=== PATIENT | male | born 1975 | race Caucasian/White ===

== ENCOUNTER 2021-04-08 20:31 | Observation (INO) | payer BC ==
[2021-04-08] MEDS ORDERED: SODIUM CHLORIDE 0.9% 1,000 ML IV STA (21:49)
[2021-04-08] MEDS ORDERED: KETOROLAC 15 MG/ML 1 ML VIAL IVP STA (21:49)
[2021-04-08] MEDS ORDERED: MORPHINE SULFATE 4 MG/ML SYRINGE IV STA (21:49)
--- NOTE | 2021-04-08 21:51 | ED ---
Abdominal Pain HPI - General Chief Complaint: Abdominal Pain Stated Complaint: Abd Pain Time Seen by Provider: 04/08/21 21:29 Source: patient, RN notes reviewed, old records reviewed Mode of arrival: ambulatory Limitations: no limitations - History of Present Illness Initial Comments: This is a 46-year-old male to the emergency department today. Patient presents today for evaluation regards to abdominal pain. Patient was seen in urgent care and sent DF for further evaluation regarding possibility of appendicitis. A she has no significant medical history no significant surgical history MD Complaint: abdominal pain -: hour(s) Location: diffuse, RLQ Radiation: RLQ Migration to: suprapubic Severity: moderate Severity scale (1-10): 4 Quality: cramping, aching Consistency: constant, intermittent Worsens With: nothing Associated Symptoms: nausea Treatments Prior to Arrival: other (none) - Related Data Home Medications Medication Instructions Recorded Confirmed Multivitamins, Thera [Theragran] 1 tab PO DAILY 03/31/15 04/08/21 Acetaminophen [Tylenol Extra 1,000 mg PO Q6H PRN 04/08/21 04/08/21 Strength] Cyanocobalamin (Vitamin B-12) 1,000 mcg PO DAILY 04/08/21 04/08/21 [Vitamin B-12] Elderberry Fruit and Flower [Black 1 cap PO DAILY 04/08/21 04/08/21 Elderberry 575 mg Cap] Losartan [Cozaar] 50 mg PO DAILY 04/08/21 04/08/21 [place]-3 Fatty Acids/Fish Oil [Fish 1 cap PO DAILY 04/08/21 04/08/21 Oil 1,000 mg Softgel] Turmeric Root Extract [Turmeric] 500 mg PO DAILY 04/08/21 04/08/21 Zinc Gluconate [Zinc] 50 mg PO DAILY 04/08/21 04/08/21 Allergies Allergy/AdvReac Type Severity Reaction Status Date / Time No Known Allergies Allergy Verified 04/08/21 22:55 Review of Systems ROS Statement: Those systems with pertinent positive or pertinent negative responses have been documented in the HPI. ROS Other: All systems not noted in ROS Statement are negative. Past Medical History Additional Past Medical History / Comment(s): steroids w/in 3 mos, lt shoulder pain,freq muscle spasms to neck,numbness lt index finger and thumb History of Any Multi-Drug Resistant Organisms: None Reported Past Surgical History: Orthopedic Surgery Additional Past Surgical History / Comment(s): rt rot cuff repair,nasal surgery Past Anesthesia/Blood Transfusion Reactions: No Reported Reaction Past Psychological History: No Psychological Hx Reported Smoking Status: Former smoker Past Alcohol Use History: Occasional Past Drug Use History: None Reported - Past Family History Mother Additional Family Medical History / Comment(s): heart problems Father Family Medical History: Diabetes Mellitus, Hypertension General Exam Limitations: no limitations General appearance: alert, in no apparent distress Head exam: Present: atraumatic, normocephalic, normal inspection Eye exam: Present: normal appearance, PERRL, EOMI. Absent: scleral icterus, conjunctival injection, periorbital swelling ENT exam: Present: normal exam, mucous membranes moist Neck exam: Present: normal inspection. Absent: tenderness, meningismus, lymphadenopathy Respiratory exam: Present: normal lung sounds bilaterally. Absent: respiratory distress, wheezes, rales, rhonchi, stridor Cardiovascular Exam: Present: regular rate, normal rhythm, normal heart sounds. Absent: systolic murmur, diastolic murmur, rubs, gallop, clicks GI/Abdominal exam: Present: soft, normal bowel sounds. Absent: distended, tenderness, guarding, rebound, rigid Extremities exam: Present: normal inspection, full ROM, normal capillary refill. Absent: tenderness, pedal edema, joint swelling, calf tenderness Back exam: Present: normal inspection Neurological exam: Present: alert, oriented X3, CN II-XII intact Psychiatric exam: Present: normal affect, normal mood Skin exam: Present: warm, dry, intact, normal color. Absent: rash Course Vital Signs 04/08/21 04/08/21 20:51 22:41 Temperature 98.6 F Pulse Rate 96 79 Respiratory 19 20 Rate Blood Pressure 146/101 136/87 O2 Sat by Pulse 98 96 Oximetry - Reevaluation(s) Reevaluation #1: 04/08/21 22:46 Medical records reviewed Reevaluation #2: 04/09/21 00:30 Patient informed of results and questions answered Reevaluation #3: 04/09/21 00:30 Patient's pain is controlled Medical Decision Making - Medical Decision Making 46 male DF for evaluation of abdominal pain with acute appendicitis. No rupture. Patient placed on antibiotics pain control and nothing per mouth status for surgery in the morning - Lab Data Result diagrams: 04/08/21 21:49 04/08/21 21:49 Lab Results 04/08/21 04/08/21 Range/Units 21:49 21:49 WBC 13.6 H (3.8-10.6) k/uL RBC 4.75 (4.30-5.90) m/uL Hgb 14.1 (13.0-17.5) gm/dL Hct 41.9 (39.0-53.0) % MCV 88.2 (80.0-100.0) fL MCH 29.7 (25.0-35.0) pg MCHC 33.7 (31.0-37.0) g/dL RDW 12.2 (11.5-15.5) % Plt Count 204 (150-450) k/uL MPV 8.2 Neutrophils % 83 % Lymphocytes % 10 % Monocytes % 5 % Eosinophils % 1 % Basophils % 0 % Neutrophils # 11.3 H (1.3-7.7) k/uL Lymphocytes # 1.3 (1.0-4.8) k/uL Monocytes # 0.7 (0-1.0) k/uL Eosinophils # 0.1 (0-0.7) k/uL Basophils # 0.0 (0-0.2) k/uL Sodium 138 (137-145) mmol/L Potassium 4.1 (3.5-5.1) mmol/L Chloride 105 (98-107) mmol/L Carbon Dioxide 21 L (22-30) mmol/L Anion Gap 12 mmol/L BUN 20 (9-20) mg/dL Creatinine 0.89 (0.66-1.25) mg/dL Est GFR (CKD-EPI)AfAm >90 (>60 ml/min/1.73 sqM) Est GFR (CKD-EPI)NonAf >90 (>60 ml/min/1.73 sqM) Glucose 128 H (74-99) mg/dL Calcium 9.7 (8.4-10.2) mg/dL Phosphorus 3.6 (2.5-4.5) mg/dL Magnesium 2.0 (1.6-2.3) mg/dL Total Bilirubin 0.4 (0.2-1.3) mg/dL AST 42 (17-59) U/L ALT 40 (4-49) U/L Alkaline Phosphatase 105 (38-126) U/L Total Protein 7.2 (6.3-8.2) g/dL Albumin 4.3 (3.5-5.0) g/dL Amylase 73 (30-110) U/L Lipase 187 (23-300) U/L - Radiology Data Radiology results: report reviewed (CT of the abdomen and pelvis is positive for acute appendicitis), image reviewed Disposition Clinical Impression: Abdominal pain, Acute appendicitis Disposition: ADMITTED IP TO THIS [facility] Condition: Good Is patient prescribed a controlled substance at d/c from ED?: No Referrals: Addison Parker DO [Primary Care Provider] - 1-2 days
[2021-04-08 22:43] LABS: Basophils % (A) 0 %; Eosinophils # (A) 0.1 k/uL (0-0.7); Eosinophils % (A) 1 %; HCT 41.9 % (39.0-53.0); HGB 14.1 gm/dL (13.0-17.5); Lymphocytes # (A) 1.3 k/uL (1.0-4.8); Lymphocytes % (A) 10 %; MCH 29.7 pg (25.0-35.0); MCHC 33.7 g/dL (31.0-37.0); MCV 88.2 fL (80.0-100.0); Mean Platelet Volume 8.2; Monocytes # (A) 0.7 k/uL (0-1.0); Monocytes % (A) 5 %; Neutrophils # (A) 11.3 k/uL (1.3-7.7); Neutrophils % (A) 83 %; Platelet Count 204 k/uL (150-450); RBC 4.75 m/uL (4.30-5.90); RDW 12.2 % (11.5-15.5); WBC 13.6 k/uL (3.8-10.6)
[2021-04-08 22:53] LABS: ALT 40 U/L (4-49); AST 42 U/L (17-59); African American GFR (CKD) >90 (>60 ml/min/1.73 sqM); Albumin 4.3 g/dL (3.5-5.0); Alkaline Phosphatase 105 U/L (38-126); Amylase 73 U/L (30-110); Anion Gap 12 mmol/L; Blood Urea Nitrogen 20 mg/dL (9-20); Calcium 9.7 mg/dL (8.4-10.2); Carbon Dioxide 21 mmol/L (22-30); Chloride 105 mmol/L (98-107); Glucose 128 mg/dL (74-99); Lipase 187 U/L (23-300); Non-African American GFR(CKD) >90 (>60 ml/min/1.73 sqM); Potassium 4.1 mmol/L (3.5-5.1); Sodium 138 mmol/L (137-145); Total Bilirubin 0.4 mg/dL (0.2-1.3); Total Protein 7.2 g/dL (6.3-8.2)
[2021-04-08 22:55] LABS: Phosphorus 3.6 mg/dL (2.5-4.5)
--- NOTE | 2021-04-08 23:24 | CT ---
EXAMINATION TYPE: CT abdomen pelvis w con DATE OF EXAM: 04/08/2021 COMPARISON: None HISTORY: RLQ pain CT DLP: 1397.6 mGycm Automated exposure control for dose reduction was used. CONTRAST: Performed with IV Contrast, patient injected with 100 mL of Isovue 300. Lung bases are clear. There is no pleural effusion. Heart size is normal. There is no pericardial eff usion. Stomach is intact. Liver spleen pancreas gallbladder appear intact. Bile ducts are not dilated . There is no adrenal mass. Kidneys show satisfactory contrast opacification. There is no hydronephrosi s. There is 3 cm cortical cyst posterior left kidney. There is no retroperitoneal adenopathy. Bladder distends smoothly. There is no inguinal hernia. There is no free fluid in the pelvis. Delayed images show normal renal excretion. There is significant enlargement of the appendix. Appendix is dilated with fluid up to 1.7 cm. There is mild fat stranding around the appendix. There is no free air. There is no ascites. There is no sign of a bowel obstruction. The lumbar vertebra have normal alignment. Posterior elements are intact. There is no compression fra cture. IMPRESSION: Dilated fluid-filled appendix with inflammatory changes and acute appendicitis.
[2021-04-09] MEDS ORDERED: AMPICILLIN-SULBACTAM 3 GM in SODIUM CHLORIDE 0.9% 100 ML IVPB STA (00:06)
[2021-04-09] MEDS ORDERED: NALOXONE 0.4 MG/ML 1 ML VIAL IV PRN (00:29)
[2021-04-09] MEDS ORDERED: ONDANSETRON 4 MG/2 ML VIAL IVP PRN (00:29)
[2021-04-09] MEDS: SODIUM CHLORIDE 0.9% 1,000 ML IV SCH ×3 (01:05→16:18)
[2021-04-09] MEDS: MORPHINE SULFATE 4 MG/ML SYRINGE IV PRN ×5 (01:08→17:13)
[2021-04-09] MEDS: AMPICILLIN-SULBACTAM 3 GM in SODIUM CHLORIDE 0.9% 100 ML IVPB SCH ×2 (08:15→16:19)
[2021-04-09] MEDS ORDERED: PANTOPRAZOLE 40 MG/10 ML VIAL IV SCH (09:00)
[2021-04-09] MEDS ORDERED: HEPARIN SODIUM,PORCINE/PF 5,000 UNIT/0.5 ML SYRINGE SQ ONE (10:01)
[2021-04-09] MEDS ORDERED: SODIUM CHLORIDE 0.9% 1,000 ML IV ONE (10:08)
[2021-04-09] MEDS ORDERED: MIDAZOLAM 2 MG/2 ML VIAL ONE (10:20)
[2021-04-09] MEDS ORDERED: fentaNYL (PF) 50 MCG/ML 2 ML AMP ONE (10:20)
[2021-04-09] MEDS ORDERED: PROPOFOL 10 MG/ML 20 ML VIAL IV ONE (10:20)
[2021-04-09] MEDS ORDERED: LIDOCAINE 1% INJ 10MG/ML (20 ML MDV) ONE (10:20)
[2021-04-09] MEDS ORDERED: SUCCINYLCHOLINE CHLORIDE 100 MG/5 ML SYR IV ONE (10:20)
[2021-04-09] MEDS ORDERED: NEOSTIGMINE 1 MG/ML 10 ML VIAL ONE (10:20)
[2021-04-09] MEDS ORDERED: ROCURONIUM 10 MG/ML (5 ML VIAL) IV ONE (10:20)
[2021-04-09] MEDS ORDERED: GLYCOPYRROLATE 0.2 MG/ML 2 ML VIAL ONE (10:20)
--- NOTE | 2021-04-09 10:22 | P.GSHP ---
History of Present Illness H&P Date: 04/09/21 Chief Complaint: Acute appendicitis 46-year-old male came to the ER last night with complaints of diffuse abdominal pain. Since that time patient's pain has migrated to the right lower quadrant. He had an episode similar to this many years ago that resolved spontaneously. That was supposedly related to excess creatine he had been taking. He is nauseated. No vomiting. Had some diarrhea yesterday. White blood cell count 13. No fevers. CAT scan shows acute appendicitis. - Review of Systems Comment: The patient denies any acute changes in vision or hearing, no dysphagia or odynophagia, no chest pain or shortness of breath, no dysuria or hematuria, no headache, no runny nose, no rectal bleeding or melena, no unexplained weight loss Past Medical History Past Medical History: Hypertension Additional Past Medical History / Comment(s): sciatica on the left side. Had covid in june. History of Any Multi-Drug Resistant Organisms: None Reported Past Surgical History: Orthopedic Surgery Additional Past Surgical History / Comment(s): rt and left rotator cuff repair, nasal surgery Past Anesthesia/Blood Transfusion Reactions: No Reported Reaction Past Psychological History: No Psychological Hx Reported Smoking Status: Never smoker Past Alcohol Use History: Occasional Additional Past Alcohol Use History / Comment(s): Pt states he drinks 24 drinks approximately only on the weekends. Past Drug Use History: Marijuana - Past Family History Mother Additional Family Medical History / Comment(s): heart problems Father Family Medical History: Diabetes Mellitus, Hypertension Medications and Allergies Home Medications Medication Instructions Recorded Confirmed Type Multivitamins, Thera [Theragran] 1 tab PO DAILY 03/31/15 04/08/21 History Acetaminophen [Tylenol Extra 1,000 mg PO Q6H PRN 04/08/21 04/08/21 History Strength] Cyanocobalamin (Vitamin B-12) 1,000 mcg PO DAILY 04/08/21 04/08/21 History [Vitamin B-12] Elderberry Fruit and Flower [Black 1 cap PO DAILY 04/08/21 04/08/21 History Elderberry 575 mg Cap] Losartan [Cozaar] 50 mg PO DAILY 04/08/21 04/08/21 History [place]-3 Fatty Acids/Fish Oil [Fish 1 cap PO DAILY 04/08/21 04/08/21 History Oil 1,000 mg Softgel] Turmeric Root Extract [Turmeric] 500 mg PO DAILY 04/08/21 04/08/21 History Zinc Gluconate [Zinc] 50 mg PO DAILY 04/08/21 04/08/21 History Allergies Allergy/AdvReac Type Severity Reaction Status Date / Time No Known Allergies Allergy Verified 04/08/21 22:55 Surgical - Exam Vital Signs Temp Pulse Resp BP Pulse Ox 98.6 F 96 19 146/101 98 04/08/21 20:51 04/08/21 20:51 04/08/21 20:51 04/08/21 20:51 04/08/21 20:51 Physical exam: General: Well-developed, well-nourished HEENT: Normocephalic, sclerae nonicteric Abdomen: Moderate right lower quadrant tenderness, nondistended Extremities: No edema Neuro: Alert and oriented Results - Labs 04/08/21 21:49 04/08/21 21:49 Abnormal Lab Results - Last 24 Hours (Table) 04/08/21 04/08/21 Range/Units 21:49 21:49 WBC 13.6 H (3.8-10.6) k/uL Neutrophils # 11.3 H (1.3-7.7) k/uL Carbon Dioxide 21 L (22-30) mmol/L Glucose 128 H (74-99) mg/dL Diabetes panel 04/08/21 Range/Units 21:49 Sodium 138 (137-145) mmol/L Potassium 4.1 (3.5-5.1) mmol/L Chloride 105 (98-107) mmol/L Carbon Dioxide 21 L (22-30) mmol/L BUN 20 (9-20) mg/dL Creatinine 0.89 (0.66-1.25) mg/dL Glucose 128 H (74-99) mg/dL Calcium 9.7 (8.4-10.2) mg/dL AST 42 (17-59) U/L ALT 40 (4-49) U/L Alkaline Phosphatase 105 (38-126) U/L Total Protein 7.2 (6.3-8.2) g/dL Albumin 4.3 (3.5-5.0) g/dL Calcium panel 04/08/21 Range/Units 21:49 Calcium 9.7 (8.4-10.2) mg/dL Phosphorus 3.6 (2.5-4.5) mg/dL Albumin 4.3 (3.5-5.0) g/dL Pituitary panel 04/08/21 Range/Units 21:49 Sodium 138 (137-145) mmol/L Potassium 4.1 (3.5-5.1) mmol/L Chloride 105 (98-107) mmol/L Carbon Dioxide 21 L (22-30) mmol/L BUN 20 (9-20) mg/dL Creatinine 0.89 (0.66-1.25) mg/dL Glucose 128 H (74-99) mg/dL Calcium 9.7 (8.4-10.2) mg/dL Adrenal panel 04/08/21 Range/Units 21:49 Sodium 138 (137-145) mmol/L Potassium 4.1 (3.5-5.1) mmol/L Chloride 105 (98-107) mmol/L Carbon Dioxide 21 L (22-30) mmol/L BUN 20 (9-20) mg/dL Creatinine 0.89 (0.66-1.25) mg/dL Glucose 128 H (74-99) mg/dL Calcium 9.7 (8.4-10.2) mg/dL Total Bilirubin 0.4 (0.2-1.3) mg/dL AST 42 (17-59) U/L ALT 40 (4-49) U/L Alkaline Phosphatase 105 (38-126) U/L Total Protein 7.2 (6.3-8.2) g/dL Albumin 4.3 (3.5-5.0) g/dL Assessment and Plan (1) Acute appendicitis Narrative/Plan: 46-year-old male with acute appendicitis. Clinical scenario reviewed in detail with the patient and his family. We'll proceed with laparoscopic, possible open appendectomy at this time. Risks of bleeding, infection, abscess, bladder bowel and ureteral injury, hernia, conversion to an open procedure. Patient understands and wishes to proceed. Current Visit: Yes Status: Acute Code(s): K35.80 - UNSPECIFIED ACUTE APPENDICITIS SNOMED Code(s): 46208697
[2021-04-09] MEDS ORDERED: ONDANSETRON 4 MG/2 ML VIAL IVP ONE (10:23)
[2021-04-09] MEDS ORDERED: DEXAMETHASONE SOD PHOSPHATE 4 MG/ML 1 ML VIAL IVP ONE (10:24)
[2021-04-09] MEDS ORDERED: BUPIVACAINE (PF) 0.25% 30 ML VIAL SQ ONE (10:46)
[2021-04-09] MEDS ORDERED: HYDROmorphone 0.5 MG/0.5 ML SYRINGE IVP PRN (11:26)
[2021-04-09] MEDS ORDERED: HYDROcodone/APAP 5-325MG 1 EACH TAB PO PRN (11:26)
[2021-04-09] MEDS ORDERED: diphenhydrAMINE 50 MG/ML 1 ML VIAL ONE (11:26)
[2021-04-09] MEDS ORDERED: diphenhydrAMINE 50 MG/ML 1 ML VIAL IVP ONE (11:28)
--- NOTE | 2021-04-09 11:33 | P.OP ---
Date of Procedure: 04/09/21 Procedure(s) Performed: PREOPERATIVE DIAGNOSIS: Acute appendicitis POSTOPERATIVE DIAGNOSIS: Same PROCEDURE: Laparoscopic appendectomy SURGEON: Mark EBL: 5 mL ANESTHESIA: General COMPLICATIONS: None OPERATIVE PROCEDURE: The patient was brought and placed on the operating table in the supine position. The patient was placed under general anesthesia. The abdomen was prepped and draped in the usual sterile fashion. A small vertical infraumbilical incision was made. The fascia was retracted anteriorly with Dalton forceps. The Veress needle was advanced into the peritoneal cavity. The saline drop test was normal. Insufflation took place to 15 mmHg. A 5 mm trocar was then placed. An additional 5 mm suprapubic trocar was placed under direct visualization as well as a 12 mm left lower quadrant trocar under direct visualization. The appendix was inspected. It was acutely inflamed. The mesoappendix was dissected. The base of the appendix was divided using a linear 45 mm intestinal stapler. The mesentery itself was divided using the LigaSure device. The area was then irrigated. No further purulence or bleeding was seen. The appendix was brought out of the peritoneal cavity through the left lower quadrant trocar site with an Endo Catch bag. The fascia at the 12 mm site was closed using a Leno-Carmen 0 Vicryl stitch. The skin at all 3 sites was closed using 4-0 Monocryl sutures. Skin glue was then applied. DISPOSITION: Stable to recovery room
[2021-04-09] MEDS: HYDROmorphone 0.5 MG/0.5 ML SYRINGE IVP ONE ×2 (11:39→11:52)
[2021-04-09 14:26] VITALS: BP 95/62; PULSE 56; RESP 17; TEMP 98.1
[2021-04-09] MEDS ORDERED: HEPARIN SODIUM,PORCINE/PF 5,000 UNIT/0.5 ML SYRINGE SQ SCH (16:00)
== END 2021-04-09 18:50 | disposition home or self-care (01) ==
LOC: EC 20:31 → 6NMEDSUR 04-09 00:29
PROVIDERS: ADMIT Surgery; ATTEND Surgery
DX: K35.80 Unspecified acute appendicitis (principal); I10 Essential (primary) hypertension; M54.32 Sciatica, left side; Z86.16 Personal history of COVID-19; Z79.899 Other long term (current) drug therapy; Z98.890 Other specified postprocedural states; Z87.891 Personal history of nicotine dependence; Z82.49 Family history of ischemic heart disease and other diseases of the circulatory system; Z83.3 Family history of diabetes mellitus
CPT/HCPCS: 96376 ×2; 96375 ×2; 96361; 96374; 99285; 36415; 88304; 80053; 82150; 83690; 83735; 84100; 85025; 87635; 74177; 44970; G0378; J2250; J2270 ×2; J1200; J1100; J2710; J2405; J2001; J3010; J0295; J1885; J0330; J2704; C9113; J1170; Q9967; J1644

== ENCOUNTER → 2021-07-15 | Outpatient (CLI) | payer BC ==
[2021-07-15 09:55] LABS: Basophils # (A) 0.1 k/uL (0-0.2); Basophils % (A) 1 %; Eosinophils # (A) 0.2 k/uL (0-0.7); Eosinophils % (A) 3 %; HGB 13.3 gm/dL (13.0-17.5); Lymphocytes # (A) 1.7 k/uL (1.0-4.8); Lymphocytes % (A) 28 %; MCH 29.3 pg (25.0-35.0); MCHC 32.5 g/dL (31.0-37.0); MCV 90.1 fL (80.0-100.0); Mean Platelet Volume 7.8; Monocytes # (A) 0.4 k/uL (0-1.0); Monocytes % (A) 7 %; Neutrophils # (A) 3.6 k/uL (1.3-7.7); Neutrophils % (A) 60 %; Platelet Count 208 k/uL (150-450); RBC 4.55 m/uL (4.30-5.90); WBC 6.1 k/uL (3.8-10.6)
[2021-07-15 10:03] LABS: Potassium 4.6 mmol/L (3.5-5.1)
== END | disposition home or self-care (01) ==
LOC: LABPAT 09:27
PROVIDERS: ATTEND Orthopaedic Surgery
DX: Z01.812 Encounter for preprocedural laboratory examination (principal)
CPT/HCPCS: 36415; 80051; 85025

== ENCOUNTER → 2022-01-14 | Outpatient (CLI) | payer BC ==
--- NOTE | 2022-01-14 07:51 | MR ---
EXAMINATION TYPE: MR shoulder RT wo con DATE OF EXAM: 01/14/2022 COMPARISON: Outside right shoulder x-ray 3 days ago HISTORY: Rt shoulder pain, hx of surgery TECHNIQUE: Multiplanar, multisequence imaging of the right shoulder is performed without contrast. FINDINGS: Exam suboptimal as there is significant patient motion Rotator Cuff: Increased signal in the distal supraspinatus and infraspinatus tendons with slight tear ing of the articular surface anteriorly. No significant full-thickness retracted tear. Intact suprasp inatus tendon. Rotator cuff muscle bulk preserved. Acromioclavicular Joint: Widening at the acromioclavicular joint may be products of prior surgery Glenohumeral Joint: Moderate narrowing with small joint effusion. Labrum: The labrum appears grossly intact given limitation of non-arthrogram study. Biceps Tendon: The long head of biceps is in normal location within bicipital groove. Bone marrow signal: Artifact is increased signal superior lateral humeral head likely reflects produc t of prior rotator cuff surgery. Other: Increased fluid signal subdeltoid/subacromial bursa. IMPRESSION: Suboptimal study. Tendinosis through the supraspinatus and infraspinatus tendons with slight tearing at site of surgical repair. No recurrent full-thickness retracted tear.
== END | disposition home or self-care (01) ==
LOC: RADMRIMAIN 06:51
PROVIDERS: ATTEND Orthopaedic Surgery
DX: M75.111 Incomplete rotator cuff tear or rupture of right shoulder, not specified as traumatic (principal)

== ENCOUNTER → 2022-07-04 | Outpatient (CLI) | payer BC ==
--- NOTE | 2022-07-04 11:47 | MR ---
EXAMINATION TYPE: MR shoulder LT wo con DATE OF EXAM: 07/04/2022 COMPARISON: X-ray 05/31/2022 HISTORY: L shoulder pain TECHNIQUE: Multiplanar, multisequence imaging of the left shoulder is performed without contrast. FINDINGS: There is marked heterogeneity of the distal margin of the infraspinatus and supraspinatus t endons which could be postsurgical or represent scattered intrasubstance microtears. No through thick ness tear or retraction. There does appear to be a abnormal marrow signal within the humeral head sug gestive of previous rotator cuff repair surgery. There is a pair labral cyst along the superior labrum with abnormal signal extending posteriorly comp atible with a SLAP tear. Inferior labrum intact. There is glenohumeral ligaments are intact. Tiny benign cystic changes involving the humeral head. Th ere is no evidence of acute fracture or dislocation. No definite impingement related to the AC joint. There is narrowing of the joint space with increased signal within the AC joint ligament. Bicipital tendon well situated within the bicipital groove IMPRESSION: 1. Marked heterogeneity to the distal margins of the supraspinatus and infraspinatus tendons may be r elated to postsurgical change or scattered intrasubstance microtears. No true thickness tear or retra ction. 2. Para labral cyst involving the superior labrum with findings compatible with SLAP tear 3. AC joint arthropathy correlate for AC joint ligamentous sprain. 4. Findings suggest previous rotator cuff repair surgery.
== END | disposition home or self-care (01) ==
LOC: RADMRIMAIN 10:21
PROVIDERS: ATTEND Orthopaedic Surgery
DX: M75.112 Incomplete rotator cuff tear or rupture of left shoulder, not specified as traumatic (principal); M25.512 Pain in left shoulder

== ENCOUNTER → 2022-09-26 | Outpatient (CLI) | payer BC ==
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
== END | disposition home or self-care (01) ==
LOC: RADCTMAIN 08:48
PROVIDERS: ATTEND Orthopaedic Surgery
DX: M47.22 Other spondylosis with radiculopathy, cervical region (principal); M41.9 Scoliosis, unspecified
CPT/HCPCS: 72125

== ENCOUNTER → 2022-10-13 | Outpatient (CLI) | payer BC ==
[2022-10-13 08:17] VITALS: BP 153/102; PULSE 80; RESP 18
--- NOTE | 2022-10-13 14:41 | P.PAINPG ---
PQRS Measure Charge Sheet Comment: HISTORY OF PRESENT ILLNESS: 47 yr old as a referral from Dr Zambrano presents today w severe and chronic neck pain secondary to spinal stenosis, DDD, spondylosis and facet arthropathy without myelopathy for evaluation. Pt states pain level is provoked at 6 /10 in intensity, intermittent, localized in the lower cervical spine, sharp, stabbing in character w shooting pain towards the L shoulder and LUE. Pain is provoked by lifting. Pain is alleviated by PT 2 times weekly (since shoulder surgery in 2016) integrated w massage at home by his , medications (Tyl, Ibu), topical, heat, ice, repositioning and rest. PMH: Appendicitis, HTN PSH: R RCT Repair (2021), Laparoscopic Appendectomy (2020), Nasal Surgery SH: Never smoker, Occasional ETOH use, No illicit drug use FH: Mo- CAD. Fa- DM, HTN. All: NKDA Meds: See list REVIEW OF ORGAN SYSTEMS: CONSTITUTIONAL: No fevers or chills. No recent weight loss. NEUROLOGICAL: + numbness and tingling along the distal extremities. No seizure disorders or headaches. MUSCULOSKELETAL: + pain PSYCHIATRIC: Denies current depression or suicidal thoughts. Physical Examinations : Constitutional : Cooperative , not in acute distress . Neurologic : Cranial nerve II to XII intact. No focal n eurological deficits. Psychiatric : alert & oriented x 3. Matching mood & appropriate affect. Judgment & insight intact. Musculoskeletal : Cervical Spine Motor strength in the deltoid and biceps: Normal right side. Normal Left side Motor strength biceps and the wrist extensors: Normal right side . Normal left side Motor strength in the triceps muscle: Normal right side. Normal left side Deep tendon reflexes: Normal at the biceps. Normal at Brachioradialis. Normal at triceps Vertebral body tenderness to deep palpation over C6 Cervical facet loading test: positive bilaterally Spurling test: positive bilaterally Neck distraction test: positive bilaterally Mikie sign: positive bilaterally Lumbar spine Motor strength lower extremities ,thigh and legs 5/5 Right side , 5/5 Left side Deep tendon reflexes : Normal Knee Jerk. Normal Ankle Jerk Vertebral body tenderness over Lumbar facet Loading Test: positive Right / positive Left Range of motion of the lumbar spine Flexion 30 degrees, extension 10 degrees Straight Leg Raise test: Left/ Right positive at degree Jimenez test: positive right / positive left. Severe tenderness over the Sacroiliac joint on the Right / Left sides Gaenslen test: positive bilaterally Seated flexion test: positive bilaterally. Sacral spine : Severe tenderness over the Sacroiliac joint: right side / left side Range of motion: Flexion of the lumbar spine <60 degrees Range of motion: Extension of the lumbar spine <20 degrees Gaenslen's Test positive Celio's Test positive Jimenez test: positive right side / left side Thigh Thrust Test Sacral Thrust Test Imaging: MRI without contrast of the cervical spine from 09/08/22 reviewed Assessment/ Plan : Cervical spinal stenosis, cervical DDD Recommendation of interlaminar SEN C6-C7 #1. May need a series of injections for optimal pain relief. Risks, benefits of procedure discussed and patient v erbalized understanding. Admits to aspirin or anti- coagulant use or medical history of diabetes. Protocol for discontinuation/ continuation of medications laly procedure discussed. All questions answered. I have spent greater than 30 minutes on patient care today. Dr Howard was available by phone for the evaluation of this patient. The time was used to review the medical records including relevant urine studies and Prescription history (MAPs), review of the available imaging, evaluation and examination of the patient, coordination of care with the medical staff and if applicable referring physicians, as well as creation of the medical record PQRS Narrative: Smoking Status Never smoker Home Medications: Ambulatory Orders Multivitamins, Thera [Theragran] 1 tab PO DAILY 03/31/15 Acetaminophen [Tylenol Extra Strength] 1,000 mg PO Q6H PRN 04/08/21 Cyanocobalamin (Vitamin B-12) [Vitamin B-12] 1,000 mcg PO DAILY 04/08/21 Elderberry Fruit and Flower [Black Elderberry 575 mg Cap] 1 cap PO DAILY 04/08/21 Losartan [Cozaar] 50 mg PO DAILY 04/08/21 [place]-3 Fatty Acids/Fish Oil [Fish Oil 1,000 mg Softgel] 1 cap PO DAILY 04/08/21 Turmeric Root Extract [Turmeric] 500 mg PO DAILY 04/08/21 Zinc Gluconate [Zinc] 50 mg PO DAILY 04/08/21 Controlled Substance Measures - Controlled Substance Measures Is patient prescribed a controlled substance at discharge?: No
== END ==
LOC: PNWHC3 07:40
PROVIDERS: ATTEND Specialist
DX: M50.30 Other cervical disc degeneration, unspecified cervical region (principal); M48.02 Spinal stenosis, cervical region; I10 Essential (primary) hypertension; K37 Unspecified appendicitis
CPT/HCPCS: 99211

== ENCOUNTER 2022-11-08 11:37 | Day surgery (SDC) | payer BC ==
[2022-11-04 13:06] VITALS: BMI 33.7
[~2022-11-08 11:37] MED LIST: LACTATED RINGERS 1,000 ML IV SCH
[2022-11-08 12:16] VITALS: RESP 16; TEMP 97
[2022-11-08] MEDS ORDERED: MIDAZOLAM 2 MG/2 ML VIAL ONE (12:54)
[2022-11-08] MEDS ORDERED: IOPAMIDOL M200 10 ML VIAL ONE (12:54)
[2022-11-08] MEDS ORDERED: fentaNYL (PF) 50 MCG/ML 2 ML AMP ONE (12:54)
[2022-11-08] MEDS ORDERED: DEXAMETHASONE SOD PHOSPHATE 10 MG/ML 1 ML VIAL ONE (12:54)
--- NOTE | 2022-11-08 13:07 | P.PCN ---
Date of Procedure: 11/08/22 Surgeon: Bryanna Yu Pathology: none sent Condition: stable Disposition: PACU Description of Procedure: PROCEDURE 1. Cervical epidural steroid injection under fluoroscopic guidance, C7-T1 left paramedian approach. 2. Cervical epidurogram. : PREOPERATIVE DIAGNOSIS: Cervical radiculopathy, cervical spondylosis without myelopathy POSTOPERATIVE DIAGNOSIS: : Same as above ANESTHESIA: Local anesthesia with 1% lidocaine and IV moderate conscious sedation with Versed and Fentanyl . EBL 0 PROCEDURE INDICATION: The patient with neck pain and radiculopathy unresponsive to conservative treatment consents for procedure. PROCEDURE DESCRIPTION / TECHNIQUE: The patient was seen and identified in the preoperative area. Risks, benefits, complications, including but not limited to infections ,bleeding , allergic reactions to the medications ,and not complete pain relief, and alternatives were discussed with the patient, the patient agreed to proceed with the procedure and signed the consent. Patient was taken to the OR and time out was completed. The patient was placed in the prone position on the procedure table. A pillow was placed under the patients chest to increase the flexion of the cervical spine . The cervical area was prepped and draped in the usual sterile fashion. Vital signs were closely monitored during the procedure. Conscious sedation was used during the procedure to decrease patients anxiety. Using anterior-posterior fluoroscopy, the C7-T1 interlaminar space was identified and the skin over this site was marked and then infiltrated with 1% lidocaine subcutaneously. Subsequently, a 20-gauge 3-1/2-inch Tuohy epidural needle was inserted and advanced toward the epidural space by means of loss of resistance to air technique and guided by AP and lateral fluoroscopy. The needle tip contacted the lamina of T1 vertebra first, then it was walked off bone and into the epidural space using the loss of to air and fluoroscopic guidance to identify the epidural space. The correct needle position in the epidural space was verified with the injection of 1 mL of the water soluble contrast dye Isovue and observing an excellent epidurogram with the epidural spread of the dye, after negative aspiration for blood and CSF and in the absence of paresthesias. Again after negative aspiration, a 2 ml mixture containing 10 mg of Decadron and 1 ml of preservative free Normal Saline solution was injected and a washout of epidurogram was seen. Needle was withdrawn intact, skin was cleansed, and bandages were applied. A copy of the needle placement picture was saved to the fluoroscopy machine. Sedation time:[id number]
[2022-11-08] MEDS ORDERED: IV FLUID CONTINUATION 1,000 ML IV ONE (13:10)
--- NOTE | 2022-11-08 13:15 | FL ---
Intraoperative/procedural fluoroscopic services were provided for cervical epidural injection. Total fluoroscopy time is 5 seconds with a total of 1 submitted image to PACS. Total DAP [id number] ease see the operative note for further details.
[2022-11-08 13:27] VITALS: BP 136/88; PULSE 55
== END 2022-11-08 13:42 | disposition home or self-care (01) ==
LOC: ORPAIN 11:37
PROVIDERS: ATTEND Anesthesiology
DX: M47.22 Other spondylosis with radiculopathy, cervical region (principal); I10 Essential (primary) hypertension
CPT/HCPCS: 62321; J2250; J1100; J3010; Q9966

== ENCOUNTER → 2022-12-01 | Outpatient (CLI) | payer BC ==
[2022-12-01 10:06] VITALS: BP 150/98; PULSE 66; RESP 18; TEMP 98.2
--- NOTE | 2022-12-01 14:24 | P.PAINPG ---
PQRS Measure Charge Sheet Comment: A 47 yr old male with a history of severe and chronic neck pain secondary to cervical DDD and spondylosis with facet arthropathy without myelopathy presents today for evaluation s/p SEN C6-7 #1. Pt states he experienced 90% x 3 wks s/p procedure. Pain level is provoked at 5 /10 in intensity, constant, localized in the lumbar spine x 5 yrs, dull in character w shooting towards the LLE. Pain is provoked by sitting for periods of 1 hr or more. Pain is alleviated with home based exercises daily by his / PT x 3 mo and up til present, daily massage gun use, chiropractic treatments x 5 visits in 2008 without relief, use of hot tub, medications, topical, use of a lumbar support brace, repositioning and rest. Interventional pain procedures completed include SEN C6-7 x1 Patient is currently on Ibu, Tyl Patient denies any side effects of the medication(s), denies excessive drowsiness or sleepiness, denies suicidal ideation and reports that the current pain medication is helping to control the pain and improve activities of daily living. Patient denies any motor or sensory deficits. Patient denies any fever or night sweats, denies any change in the bowel movements or urination. Physical Examination: -Constitutional: Cooperative. Not in acute distress . - Neurologic: Cranial nerve II to XII intact. No focal neurological deficits. - Psychatric: Alert & oriented x 3. Matching mood & appropriate affect. Judgment and insight intact. - Musculoskeletal: Cervical spine: Muscle bulk/ tone/ strength in the bilateral upper extremities normal Vertebral body tenderness to palpation over Spurling test positive Distraction test positive Facet loading test positive TTP Thoracic spine Muscle bulk / tone/ strength in the bilateral paraspinal muscles normal Vertebral body tender to palpation over Facet loading test positive TTP Lumbar spine: Motor bulk/ tone/ strength lower extremities , thigh and legs : 5/5 Deep tendon reflexes : Normal Knee Jerk. Normal Ankle Jerk . Vertebral body tenderness to palpation over L4 Lumbar Facet Loading Test positive Straight Leg Raise: positive at 30 degrees right side/ left side Gaenslen's Test positive Sacral spine : Severe tenderness over the Sacroiliac joint: right side / left side Range of motion: Flexion of the lumbar spine <60 degrees Range of motion: Extension of the lumbar spine <20 degrees Gaenslen's Test positive R / L Jimenez test: positive right side / left side Thigh Thrust Test positive R / L Sacral Thrust Test positive R/ L Imaging: No lumbar imaging on file Assessment and plan: Chronic LBP secondary to lumbar DDD, spondylosis with facet arthropathy without myelopathy Recommendation of x ray lumbar spine re: M51.36 May need additional testing if indicated. Follow up in 2-4 wks. All questions answered. I have spent less than 30 minutes on patient care today. Dr Howard was available by phone for the evaluation of this patient. The time was used to review the medical records including relevant urine studies and Prescription history (MAPs), review of the available imaging, evaluation and examination of the patient, coordination of care with the medical staff and if applicable referring physicians, as well as creation of the medical record PQRS Narrative: Smoking Status Never smoker Hx Alcohol Use (MH) Yes: WEEKENDS Home Medications: Ambulatory Orders Multivitamins, Thera [Theragran] 1 tab PO DAILY 03/31/15 Acetaminophen [Tylenol Extra Strength] 1,000 mg PO Q6H PRN 04/08/21 Cyanocobalamin (Vitamin B-12) [Vitamin B-12] 1,000 mcg PO DAILY 04/08/21 Elderberry Fruit and Flower [Black Elderberry 575 mg Cap] 1 cap PO DAILY 04/08/21 Losartan [Cozaar] 50 mg PO DAILY 04/08/21 [place]-3 Fatty Acids/Fish Oil [Fish Oil 1,000 mg Softgel] 1 cap PO DAILY 04/08/21 Turmeric Root Extract [Turmeric] 500 mg PO DAILY 04/08/21 Zinc Gluconate [Zinc] 50 mg PO DAILY 04/08/21 Controlled Substance Measures - Controlled Substance Measures Is patient prescribed a controlled substance at discharge?: No
== END ==
LOC: PNWHC3 08:59
PROVIDERS: ATTEND Specialist
DX: M51.36 Other intervertebral disc degeneration, lumbar region (principal); M47.816 Spondylosis without myelopathy or radiculopathy, lumbar region; G89.29 Other chronic pain
CPT/HCPCS: 99211

== ENCOUNTER → 2022-12-01 | Outpatient (CLI) | payer BC ==
--- NOTE | 2022-12-01 10:45 | XR ---
EXAMINATION TYPE: XR lumbar spine 2 or 3V DATE OF EXAM: 12/01/2022 10:02 AM INDICATION: Patient age:Male; 47 years old; Reason for study: PAIN; COMPARISON: None TECHNIQUE: Frontal, lateral and coned in L5-S1 lateral views of the spine. FINDINGS: No evidence of any acute osseous pathology. No evidence of loss of vertebral body height i s seen. There is normal alignment of the lumbar vertebral bodies. Minimal scattered disc space narrow ing. Multilevel minimal marginal osteophyte formation throughout the visualized spine. There is facet joint arthropathy throughout the spine. Scattered at least mild neural foraminal stenosis worse at L 5-S1. IMPRESSION: 1. No acute fracture. 2. Mild multilevel disc degeneration.
== END | disposition home or self-care (01) ==
LOC: RADXRMAIN 09:43
PROVIDERS: ATTEND Physician Assistant
DX: M51.36 Other intervertebral disc degeneration, lumbar region (principal)
CPT/HCPCS: 72100

== ENCOUNTER → 2022-12-14 | Outpatient (CLI) | payer BC ==
--- NOTE | 2022-12-14 07:49 | MR ---
EXAMINATION TYPE: MR lumbar spine wo con DATE OF EXAM: 12/14/2022 COMPARISON: Lumbar spine radiograph 12/01/2022 HISTORY: Low back pain into left buttocks, weakness TECHNIQUE: Multiplanar, multisequence images of the lumbar spine were acquired without IV contrast. FINDINGS: Lumbar segments are intact. No paraspinal masses are identified. Conus medullaris has a normal appe arance. L1-L2: No herniation, protrusion or disc bulging. No canal stenosis is present. Foramina are patent bilaterally. L2-L3: No herniation, protrusion or disc bulging. No canal stenosis is present. Foramina are patent bilaterally. L3-L4: No herniation, protrusion or disc bulging. No canal stenosis is present. Bilateral facet art hropathy. Foramina are patent bilaterally. L4-L5: Tiny central disc protrusion without significant central canal stenosis. Bilateral facet arthr opathy. No significant neural foraminal stenosis. L5-S1: Round along its posterior without herniation, protrusion or disc bulging. No canal stenosis i s present. Foramina are patent bilaterally. IMPRESSION: Minimal degenerative disc disease at L4-L5 with tiny central disc herniation. No significant central canal or neural foraminal stenosis throughout the lumbar spine.
== END | disposition home or self-care (01) ==
LOC: RADMRIMAIN 06:09
PROVIDERS: ATTEND Specialist
DX: M51.36 Other intervertebral disc degeneration, lumbar region (principal); M51.26 Other intervertebral disc displacement, lumbar region
CPT/HCPCS: 72148

== ENCOUNTER → 2022-12-22 | Outpatient (CLI) | payer BC ==
[2022-12-22 08:14] VITALS: BP 140/95; PULSE 62; RESP 18; TEMP 98.2
--- NOTE | 2022-12-22 14:59 | P.PAINPG ---
PQRS Measure Charge Sheet Comment: A 47 yr old male with a history of severe and chronic LBP secondary to lumbar DDD and spondylosis with facet arthropathy without myelopathy presents today for MRI results. Pain level is provoked at 7 /10 in intensity, constant, localized in the lumbar spine, throbbing in character w shooting towards the LLE. Pain is provoked by standing from a sitting position. Pain is alleviated with PT 3-4 times weekly by his PT for the last 3-4 yrs, massages by at home, heat, ice, medicatons, topical, lumbar support brace and knee brace, repositioning and rest. Patient is currently on Tyl, Ibu, BioFreeze gel Patient denies any side effects of the medication(s), denies excessive drowsiness or sleepiness, denies suicidal ideation and reports that the current pain medication is helping to control the pain and improve activities of daily living. Patient denies any motor or sensory deficits. Patient denies any fever or night sweats, denies any change in the bowel movements or urination. Physical Examination: -Constitutional: Cooperative. Not in acute distress . - Neurologic: Cranial nerve II to XII intact. No focal neurological deficits. - Psychatric: Alert & oriented x 3. Matching mood & appropriate affect. Judgment and insight intact. - Musculoskeletal: Cervical spine: Muscle bulk/ tone/ strength in the bilateral upper extremities normal Vertebral body tenderness to palpation over Spurling test positive Distraction test positive Facet loading test positive TTP Thoracic spine Muscle bulk / tone/ strength in the bilateral paraspinal muscles normal Vertebral body tender to palpation over Facet loading test positive TTP Lumbar spine: Motor bulk/ tone/ strength lower extremities , thigh and legs : 5/5 Deep tendon reflexes : Normal Knee Jerk. Normal Ankle Jerk . Vertebral body tenderness to palpation over L4 Johnston Test positive Lumbar Facet Loading Test positive Straight Leg Raise: positive at 30 degrees right side/ left side Gaenslen's Test positive Sacral spine : Severe tenderness over the Sacroiliac joint: right side / left side Range of motion: Flexion of the lumbar spine <60 degrees Range of motion: Extension of the lumbar spine <20 degrees Gaenslen's Test positive right side / left side Jimenez test: positive right side / left side Thigh Thrust Test positive right side / left side Sacral Thrust Test positive right side / left side Imaging: MRI noncontrast of the lumbar spine from 12/14/22 reviewed Assessment and plan: Chronic LBP secondary to lumbar DDD, spondylosis with facet arthropathy without myelopathy Recommendation of L paramedian SEN L4-L5 #1. May need a series of injections for optimal pain relief. Risks, benefits of procedure discussed and pt verbalized understanding. Admits to anticoagulant use or medical history of diabetes. Protocol for discontinuation/ continuation of medications laly procedure discussed. Minimal anesthesia provided, if clinically indicated, consisting of Versed and Fentanyl. All questions answered. I have spent less than 30 minutes on patient care today. Dr Howard was avai lable by phone for the evaluation of this patient. The time was used to review the medical records including relevant urine studies and Prescription history (MAPs), review of the available imaging, evaluation and examination of the patient, coordination of care with the medical staff and if applicable referring physicians, as well as creation of the medical record PQRS Narrative: Smoking Status Never smoker Hx Alcohol Use (MH) Yes: WEEKENDS Home Medications: Ambulatory Orders Multivitamins, Thera [Theragran] 1 tab PO DAILY 03/31/15 Acetaminophen [Tylenol Extra Strength] 1,000 mg PO Q6H PRN 04/08/21 Cyanocobalamin (Vitamin B-12) [Vitamin B-12] 1,000 mcg PO DAILY 04/08/21 Elderberry Fruit and Flower [Black Elderberry 575 mg Cap] 1 cap PO DAILY 04/08/21 Losartan [Cozaar] 50 mg PO DAILY 04/08/21 [place]-3 Fatty Acids/Fish Oil [Fish Oil 1,000 mg Softgel] 1 cap PO DAILY 04/08/21 Turmeric Root Extract [Turmeric] 500 mg PO DAILY 04/08/21 Zinc Gluconate [Zinc] 50 mg PO DAILY 04/08/21 Controlled Substance Measures - Controlled Substance Measures Is patient prescribed a controlled substance at discharge?: No
== END ==
LOC: PNWHC3 07:44
PROVIDERS: ATTEND Specialist
DX: M51.36 Other intervertebral disc degeneration, lumbar region (principal); M47.816 Spondylosis without myelopathy or radiculopathy, lumbar region; G89.29 Other chronic pain
CPT/HCPCS: 99211

== ENCOUNTER 2023-01-12 06:22 | Day surgery (SDC) | payer BC ==
[2023-01-06 15:51] VITALS: BMI 33.0
[2023-01-12] MEDS ORDERED: LACTATED RINGERS 1,000 ML IV SCH (06:48)
[2023-01-12 06:55] VITALS: PULSE 72; TEMP 97.1
[2023-01-12] MEDS ORDERED: methylPREDNISolone ACETATE 40 MG/ML 1 ML VIAL ONE (08:09)
[2023-01-12] MEDS ORDERED: ROPIVACAINE 5 MG/ML 20 ML AMPULE ONE (08:09)
--- NOTE | 2023-01-12 08:15 | P.PCN ---
Date of Procedure: 01/12/23 Procedure(s) Performed: Procedure= trigger point injections lumbar paraspinal muscles bilaterally , 2 on the right side from L2 to S1, and 3 on the left side from L2 to S1 Preoperative diagnosis= 1-myofascial pain syndrome lumbar paraspinal muscles 2-lumbar degenerative disc disease 3-lumbar facet arthropathy Postoperative diagnosis=Same as preop Diagnosis . Complication = none Condition= stable Anesthesia= none. Indication for the procedure= patient complaining of low back pain , examination was positive for multiple trigger point in the lumbar paraspinal muscles bilaterally and patient diagnosed with myofascial pain syndrome and is here to have trigger point injections Description of the procedure= procedure risk and benefits discussed with the patient, including but not limited, risk of infection and bleeding, and ALLERGIC reaction to the medication and not complete pain relief and patient agreed with the preceding patient taken to the operating room, placed in sitting position or standard monitors applied to the patient then after induction of anesthesia b ack prepped with chlorhexidine 3 times , then under sterile technique each of the trigger point that was marked in the preop holding area 2 on the right side lumbar paraspinal muscles and 3 on the left side lumbar paraspinal muscles each one of them injected with the 2 mL of the mixture of ropivacaine 0.5% 10 ML mixed with 40 mg of Depo-Medrol and 2 mL of the mixture injected at each trigger point after negative aspiration, using 25-gauge needle, injection done after negative aspiration under was no paresthesia during the injection patient tolerated the procedure well without any complications and he will follow up in the pain clinic in a few weeks
[2023-01-12 08:30] VITALS: BP 137/88; RESP 18
== END 2023-01-12 08:33 | disposition home or self-care (01) ==
LOC: ORPAIN 06:22
PROVIDERS: ATTEND Specialist
DX: M79.18 Myalgia, other site (principal); M51.36 Other intervertebral disc degeneration, lumbar region; M47.816 Spondylosis without myelopathy or radiculopathy, lumbar region
CPT/HCPCS: 20553; J1030; J2795

== ENCOUNTER → 2023-02-06 | Outpatient (CLI) | payer BC ==
[2023-02-06 08:11] VITALS: BP 156/101; PULSE 59; RESP 16; TEMP 98.4
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
== END ==
LOC: PNWHC3 07:34
PROVIDERS: ATTEND Specialist
DX: M51.37 Other intervertebral disc degeneration, lumbosacral region (principal); M47.817 Spondylosis without myelopathy or radiculopathy, lumbosacral region; G89.29 Other chronic pain
CPT/HCPCS: 99211

== ENCOUNTER → 2023-02-20 | Outpatient (CLI) | payer BC ==
--- NOTE | 2023-02-21 10:11 | MR ---
EXAMINATION TYPE: MR lumbar spine wo con DATE OF EXAM: 02/20/2023 5:22 PM COMPARISON: 12/14/2022. CLINICAL INDICATION: Male, 47 years old with history of M51.36 OTHER INTERVERTEBRAL DISC DEGENERATION ; Low back pain TECHNIQUE: Multi planar, multi sequence imaging was performed utilizing: T1-weighted, T2-weighted, a nd turbo inversion recovery imaging of the lumbar spine. IV Contrast: None. FINDINGS: Alignment: The lumbar vertebral bodies have preserved heights and alignment. Cord: The conus medullaris and the distal spinal cord appear unremarkable with regards to their signa l intensity and morphology. Bones/Discs: Bone signal is within normal limits. No abnormal bony edema on inversion recovery sequen meera. Multilevel disc degenerative is noted and most pronounced at the L3-L4 facet joints. Interverteb ral disc signal is maintained. T12-L1: No evidence of significant spinal canal stenosis or neural foraminal stenosis. L1-L2: No evidence of significant spinal canal stenosis. Facet joint arthropathy mild bilateral neura l foraminal stenosis. L2-L3: No evidence of significant spinal canal stenosis. Facet joint arthropathy mild bilateral neura l foraminal stenosis. L3-L4: Disc bulge and facet joint arthropathy result in mild spinal canal and mild bilateral neural f oraminal stenosis. Trace bilateral facet joint effusions. L4-L5: Disc bulge and facet joint arthropathy result in mild spinal canal and mild bilateral neural f oraminal stenosis. Trace bilateral facet joint effusions. L5-S1: The disc is rounded posterior morphology without significant spinal canal stenosis. Facet join t arthropathy with mild neural foraminal stenosis. No significant spinal canal or neural foraminal stenosis in the remainder of the visualized levels. Other findings: None. IMPRESSION: 1. Resolution of prior possible tiny L4-L5 and disc herniation. No definitive evidence for additiona l herniation or significant spinal canal or neural foraminal stenosis. 2. Mild disc degeneration with associated osteoarthritic changes worse at L3-L4 and L4-L5 with trace bilateral facet joint effusions.
== END | disposition home or self-care (01) ==
LOC: RADMRIMAIN 16:49
PROVIDERS: ATTEND Specialist
DX: M51.36 Other intervertebral disc degeneration, lumbar region (principal); M25.48 Effusion, other site
CPT/HCPCS: 72148

== ENCOUNTER 2023-02-24 18:36 | Emergency (ER) | payer BC ==
[2023-02-24 19:05] VITALS: TEMP 98.9
[2023-02-24 20:24] LABS: Basophils % (A) 0 %; Eosinophils # (A) 0.1 k/uL (0-0.7); Eosinophils % (A) 1 %; HCT 39.9 % (39.0-53.0); HGB 13.5 gm/dL (13.0-17.5); Lymphocytes # (A) 1.5 k/uL (1.0-4.8); Lymphocytes % (A) 11 %; MCH 29.2 pg (25.0-35.0); MCHC 33.8 g/dL (31.0-37.0); MCV 86.3 fL (80.0-100.0); Mean Platelet Volume 7.9; Monocytes # (A) 0.9 k/uL (0-1.0); Monocytes % (A) 7 %; Neutrophils # (A) 10.3 k/uL (1.3-7.7); Neutrophils % (A) 80 %; Platelet Count 240 k/uL (150-450); RBC 4.62 m/uL (4.30-5.90); RDW 13.8 % (11.5-15.5); WBC 12.9 k/uL (3.8-10.6)
[2023-02-24 20:31] LABS: African American GFR (CKD) >90 (>60 ml/min/1.73 sqM); Anion Gap 12 mmol/L; Blood Urea Nitrogen 25 mg/dL (9-20); Calcium 9.6 mg/dL (8.4-10.2); Carbon Dioxide 22 mmol/L (22-30); Chloride 105 mmol/L (98-107); Glucose 145 mg/dL (74-99); Non-African American GFR(CKD) 89 (>60 ml/min/1.73 sqM); Potassium 4.1 mmol/L (3.5-5.1); Sodium 139 mmol/L (137-145)
--- NOTE | 2023-02-24 20:37 | XR ---
EXAMINATION TYPE: XR chest 1V portable DATE OF EXAM: 02/24/2023 8:27 PM COMPARISON: None TECHNIQUE: XR chest 1V portable Frontal view of the chest. CLINICAL INDICATION:Male, 47 years old with history of cough; FINDINGS: Lungs/Pleura: There is no evidence of pleural effusion, focal consolidation, or pneumothorax. Pulmonary vascularity: Unremarkable. Heart/mediastinum: Cardiomediastinal silhouette is unremarkable. Musculoskeletal: No acute osseous pathology. IMPRESSION: No acute cardiopulmonary disease/process.
--- NOTE | 2023-02-24 21:28 | ED ---
General Adult HPI - General Chief complaint: Recheck/Abnormal Lab/Rx Stated complaint: COVID POS. HIGH BP Time Seen by Provider: 02/24/23 19:28 Source: patient, RN notes reviewed, old records reviewed Mode of arrival: ambulatory Limitations: no limitations - History of Present Illness Initial comments: Patient is a 47-year-old male who presents emergency Department complaining of being positive for Covid but also having elevated blood pressure with a last 2 days. Hypertension is been taking his medications. However patient was recently started on a Medrol Dosepak believes this may be causing him to become hypertensive is has in the past. Has no symptoms with the hypertension other than his Covid symptoms which has been rhinorrhea, without productive cough. Patient was having fevers but that that has resolved. Currently is on day 5 or 6. No other acute complaints at this time. Denies chest pain, headache, blurry vision. Denies abdominal pain, vomiting. Presents for further evaluation at this time. - Related Data Home Medications Medication Instructions Recorded Confirmed Losartan [Cozaar] 50 mg PO DAILY 04/08/21 02/24/23 Phentermine HCl [Adipex-P] 37.5 mg PO DAILY 01/06/23 02/24/23 Acetaminophen Tab [Tylenol] 325 mg PO Q4H PRN 01/23/23 02/24/23 Naproxen [Naprosyn] 500 mg PO DAILY PRN 02/06/23 02/24/23 Naproxen [Naprosyn] 500 mg PO BID 02/24/23 02/24/23 Omeprazole 20 mg PO DAILY 02/24/23 02/24/23 Previous Rx's Medication Instructions Recorded Cyclobenzaprine [Flexeril] 10 mg PO TID 5 Days #15 tab 01/23/23 Allergies Allergy/AdvReac Type Severity Reaction Status Date / Time No Known Allergies Allergy Verified 02/24/23 10:54 Review of Systems ROS Statement: Those systems with pertinent positive or pertinent negative responses have been documented in the HPI. Review of Systems: CONST: Denies fever EYES: Denies blurry vision ENT: Endorses nasal congestion C/V: Denies Chest pain RESP: Denies shortness of breath GI: Denies abdominal pain : Denies dysuria SKIN: Denies rash. MSK: Denies joint pain. NEURO: Denies headache ROS Other: All systems not noted in ROS Statement are negative. Past Medical History Past Medical History: Hypertension Additional Past Medical History / Comment(s): sciatica on the left side. Had covid in june. History of Any Multi-Drug Resistant Organisms: None Reported Past Surgical History: Appendectomy, Orthopedic Surgery Additional Past Surgical History / Comment(s): rt and left rotator cuff repair, nasal surgery, COLONOSCOPY, PAIN CLINIC PROCEDURES Past Anesthesia/Blood Transfusion Reactions: No Reported Reaction Past Psychological History: No Psychological Hx Reported Smoking Status: Never smoker Past Alcohol Use History: Occasional Past Drug Use History: Marijuana - Past Family History Mother Additional Family Medical History / Comment(s): heart problems. low blood pressure Father Family Medical History: Diabetes Mellitus, Hypertension General Exam - General Exam Comments Initial Comments: General: Appears in no acute distress. HEAD: Normal with no signs of head trauma. EYES: PERRLA, EOMI, conjunctiva normal, no discharge. ENT: Hearing grossly intact, normal oropharynx. RESPIRATORY: Clear breath sounds bilaterally. No wheezes, rales, or rhonchi. No hypoxia. No dyspnea. C/V: Regular rate and rhythm. S1 and S2 auscultated, peripheral pulses 2+ and intact throughout ABD: Abd is soft, nontender, nondistended EXT: Normal range of motion, no obvious deformity SKIN: No rashes or lesions observed on exposed skin. NEURO: Alert and oriented 4. Limitations: no limitations Course Vital Signs 02/24/23 02/24/23 18:49 21:41 Temperature 98.9 F Pulse Rate 93 68 Respiratory 20 18 Rate Blood Pressure 156/97 138/96 O2 Sat by Pulse 96 98 Oximetry Medical Decision Making - Medical Decision Making Was pt. sent in by a medical professional or institution (, PA, SHOE SINGER, urgent care, hospital, or fdc...) When possible be specific @ -No Did you speak to anyone other than the patient for history (EMS, parent, family, police, friend...)? What history was obtained from this source @ -No Did you review nursing and triage notes (agree or disagree)? Why? @ -I reviewed and agree with nursing and triage notes Were old charts reviewed (outside hosp., previous admission, EMS record, old EKG, old radiological studies, urgent care reports/EKG's, fdc records)? Report findings @ -No old charts were reviewed Differential Diagnosis (chest pain, altered mental status, abdominal pain women, abdominal pain men, vaginal bleeding, weakness, fever, dyspnea, syncope, headache, dizziness, GI bleed, back pain, seizure, CVA, palpatations, mental health, musculoskeletal)? @ -Uncontrolled hypertension, medication reaction, COVID-19 infection, pneumonia. This list is not all inclusive. EKG interpreted by me (3pts min.). @ -As above X-rays interpreted by me (1pt min.). @ -Chest X-ray reveals no obvious acute cardio pulmonary process or infiltrate. CT interpreted by me (1pt min.). @ -None done U/S interpreted by me (1pt. min.). @ -None done What testing was considered but not performed or refused? (CT, X-rays, U/S, labs)? Why? @ -None What meds were considered but not given or refused? Why? @ -None Did you discuss the management of the patient with other professionals (professionals i.e. , PA, SHOE SINGER, lab, RT, psych nurse, social services counselor, coding clerk, teacher, juvenile justice officer, piano case and bench assembler)? Give summary @ -No Was smoking cessation discussed for >3mins.? @ -No Was critical care preformed (if so, how long)? @ -No Were there social determinants of health that impacted care today? How? (Homelessness, low income, unemployed, alcoholism, drug addiction, transportation, low edu. Level, literacy, decrease access to med. care, snf, rehab)? @ -No Was there de-escalation of care discussed even if they declined (Discuss DNR or withdrawal of care, Hospice)? DNR status @ -No What co-morbidities impacted this encounter? (DM, HTN, Smoking, COPD, CAD, Cancer, CVA, ARF, Chemo, Hep., AIDS, mental health diagnosis, sleep apnea, morbid obesity)? @ -None Was patient admitted / discharged? Hospital course, mention meds given and route, prescriptions, significant lab abnormalities, going to OR and other pertinent info. @ -Based on the patient's presentation and physical exam presents for hypertension in setting of COVID-19 infection steroid use. Surgical likely causing the hypertension. There is mildly elevated with systolics in the 160s, however patient does appear anxious at this time as well. Repeat when the patient was more calm shows systolics in the 130s. This is likely related to anxiety as well as steroid use. I did recommend we obtain screening EKG, chest x-ray and labs. He was in agreement this plan. Vital signs within acceptable limits. EKG showed no signs of ischemia. Chest x-ray showed no acute cardio pulmonary process. Labs are within acceptable limits as well. On reevaluation, patient is resting comfortably. We discussed his workup. Discussed his COVID-19 infection and recommendation that he isolate until fever free at least 24 hours since he has been on day 5 of symptoms. He is currently off work and therefore I recommended he isolate as best as possible until symptoms are improved and he was in agreement this plan. Strict return precautions discussed. He was in agreement that his hypertension likely secondary to steroid use as this is happened previously. Recommended follow-up with his PCP. He should continue his antihypertensive medications. I instructed the patient to follow up with their PCP in the next 1-3 days. I explained that the patient should return to the emergency department if they experience any worsening symptoms. Strict return precautions were discussed with the patient. The patient expressed understanding of these instructions. I answered all questions that the patient had. The patient was discharged home in good condition with their prescriptions and follow up information. Undiagnosed new problem with uncertain prognosis? @ -No Drug Therapy requiring intensive monitoring for toxicity (Heparin, Nitro, Insulin, Cardizem)? @ -No Were any procedures done? @ -No Diagnosis/symptom? @ -COVID-19 infection, hypertension Acute, or Chronic, or Acute on Chronic? @ -Acute Uncomplicated (without systemic symptoms) or Complicated (systemic symptoms)? @ -Complicated Side effects of treatment? @ -No Exacerbation, Progression, or Severe Exacerbation? @ -No Poses a threat to life or bodily function? How? (Chest pain, USA, PA, pneumonia, PE, COPD, DKA, ARF, appy, cholecystitis, CVA, Diverticulitis, Homicidal, Suicidal, threat to staff... and all critical care pts) @ -No - Lab Data Result diagrams: 02/24/23 20:12 02/24/23 20:12 Lab Results 02/24/23 02/24/23 Range/Units 20:12 20:12 WBC 12.9 H (3.8-10.6) k/uL RBC 4.62 (4.30-5.90) m/uL Hgb 13.5 (13.0-17.5) gm/dL Hct 39.9 (39.0-53.0) % MCV 86.3 (80.0-100.0) fL MCH 29.2 (25.0-35.0) pg MCHC 33.8 (31.0-37.0) g/dL RDW 13.8 (11.5-15.5) % Plt Count 240 (150-450) k/uL MPV 7.9 Neutrophils % 80 % Lymphocytes % 11 % Monocytes % 7 % Eosinophils % 1 % Basophils % 0 % Neutrophils # 10.3 H (1.3-7.7) k/uL Lymphocytes # 1.5 (1.0-4.8) k/uL Monocytes # 0.9 (0-1.0) k/uL Eosinophils # 0.1 (0-0.7) k/uL Basophils # 0.0 (0-0.2) k/uL Sodium 139 (137-145) mmol/L Potassium 4.1 (3.5-5.1) mmol/L Chloride 105 (98-107) mmol/L Carbon Dioxide 22 (22-30) mmol/L Anion Gap 12 mmol/L BUN 25 H (9-20) mg/dL Creatinine 1.00 (0.66-1.25) mg/dL Est GFR (CKD-EPI)AfAm >90 (>60 ml/min/1.73 sqM) Est GFR (CKD-EPI)NonAf 89 (>60 ml/min/1.73 sqM) Glucose 145 H (74-99) mg/dL Calcium 9.6 (8.4-10.2) mg/dL - EKG Data -: EKG Interpreted by Me EKG Comments: 12-lead Electrocardiogram Interpretation Note EKG was reviewed and interpreted by myself. 12-lead ECG performed at 1959 is interpreted by me as revealing normal sinus rhythm at a rate of 100 beats per minute. Left axis deviation. [place] interval is 164 ms, QRS duration is 97 ms, QTc is 403 ms.. There were no ST or T wave abnormalities to suggest myocardial ischemia or injury. R wave progression across the precordium was satisfactory. By my interpretation this EKG is non-diagnostic for acute ischemia. Disposition Clinical Impression: COVID-19 virus infection, Hypertension Disposition: HOME SELF-CARE Condition: Good Instructions (If sedation given, give patient instructions): COVID-19 (Coronavi mio Disease 2019) (ED) Additional Instructions: isolate until 5 days fever free. Is patient prescribed a controlled substance at d/c from ED?: No Referrals: Addison Parker DO [Primary Care Provider] - 1-2 days Time of Disposition: 21:15
[2023-02-24 21:42] VITALS: BP 138/96; PULSE 68; RESP 18
== END 2023-02-24 21:42 | disposition home or self-care (01) ==
LOC: EC 18:36
DX: U07.1 COVID-19 (principal); I10 Essential (primary) hypertension; F12.90 Cannabis use, unspecified, uncomplicated; Z79.899 Other long term (current) drug therapy
CPT/HCPCS: 36415; 71045; 80048; 85025; 93005; 99284

== ENCOUNTER 2023-03-02 06:24 | Day surgery (SDC) | payer BC ==
[2023-02-16 15:50] VITALS: BMI 33.0
[2023-03-02] MEDS ORDERED: LACTATED RINGERS 1,000 ML IV SCH (07:02)
[2023-03-02 07:09] LABS: Glucose,Whole Blood 124 mg/dL (70-110)
[2023-03-02 07:11] VITALS: RESP 18; TEMP 98
[2023-03-02] MEDS ORDERED: ROPIVACAINE 5MG/ML 20ML VIAL ONE (07:47)
[2023-03-02] MEDS ORDERED: methylPREDNISolone ACETATE 40 MG/ML 1 ML VIAL ONE (07:47)
--- NOTE | 2023-03-02 07:51 | P.PCN ---
Date of Procedure: 03/02/23 Procedure(s) Performed: Procedure= trigger point injections lumbar paraspinal muscles bilaterally , 2 on the right side from L2 to S1, and 3 on the left side from L2 to S1 Preoperative diagnosis= 1-myofascial pain syndrome lumbar paraspinal muscles 2-lumbar degenerative disc disease 3-lumbar facet arthropathy Postoperative diagnosis=Same as preop Diagnosis . Complication = none Condition= stable Anesthesia= none. Indication for the procedure= patient complaining of low back pain , examination was positive for multiple trigger point in the lumbar paraspinal muscles bilaterally and patient diagnosed with myofascial pain syndrome and is here to have trigger point injections Description of the procedure= procedure risk and benefits discussed with the patient, including but not limited, risk of infection and bleeding, and ALLERGIC reaction to the medication and not complete pain relief and patient agreed with the preceding patient taken to the operating room, placed in sitting position or standard monitors applied to the patient then after induction of anesthesia back prepped with chlorhexidine 3 times , then under sterile technique each of the trigger point that was marked in the preop holding area 2 on the right side lumbar paraspinal muscles and 3 on the left side lumbar paraspinal muscles each one of them injected with the 2 mL of the mixture of ropivacaine 0.5% 10 ML mixed with 40 mg of Depo-Medrol and 2 mL of the mixture injected at each trigger point after negative aspiration, using 25-gauge needle, injection done after negative aspiration under was no paresthesia during the injection patient tolerated the procedure well without any complications and he will follow up in the pain clinic in a few weeks
[2023-03-02 07:57] VITALS: BP 121/83; PULSE 78
== END 2023-03-02 08:16 | disposition home or self-care (01) ==
LOC: ORPAIN 06:24
PROVIDERS: ATTEND Specialist
DX: M79.18 Myalgia, other site (principal); M51.36 Other intervertebral disc degeneration, lumbar region; M47.816 Spondylosis without myelopathy or radiculopathy, lumbar region; Z79.899 Other long term (current) drug therapy
CPT/HCPCS: 20553; J1030; J2795

== ENCOUNTER → 2023-03-16 | Outpatient (CLI) | payer BC ==
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
[2023-03-16 15:58] VITALS: BP 149/98; PULSE 66; RESP 16; TEMP 97.8
== END ==
LOC: PNWHC3 07:28
PROVIDERS: ATTEND Specialist
DX: M51.36 Other intervertebral disc degeneration, lumbar region (principal); M47.816 Spondylosis without myelopathy or radiculopathy, lumbar region; G89.29 Other chronic pain
CPT/HCPCS: 99211

== ENCOUNTER → 2023-04-10 | Outpatient (CLI) | payer BC ==
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
== END | disposition home or self-care (01) ==
LOC: RADMRIMAIN 13:40
PROVIDERS: ATTEND Orthopaedic Surgery
DX: M48.061 Spinal stenosis, lumbar region without neurogenic claudication (principal); M51.36 Other intervertebral disc degeneration, lumbar region; R10.2 Pelvic and perineal pain
CPT/HCPCS: 72131; 72197; A9585

== ENCOUNTER → 2023-04-12 | Outpatient (CLI) | payer BC ==
--- NOTE | 2023-04-12 20:26 | MR ---
EXAMINATION TYPE: MR lumbar spine wo/w con DATE OF EXAM: 04/12/2023 COMPARISON: Correlation CT 04/10/2023 HISTORY: 48-year-old male M54.50 LOW BACK PAIN. Technique: Multiplanar, multisequence images of the were obtained before and after administration of 10 mL intravenous Gadavist gadolinium contrast. FINDINGS: Heterogeneous marrow signal suggesting red marrow hyperplasia. No suspicious bone marrow replacement. Mild intervertebral disc desiccation and disc bulging at L4-L5 impressing on the ventral thecal sac b ut not causing any significant spinal canal stenosis. 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 Vertebral body heights are preserved and alignment is maintained. Conus medullaris is normal. No abnormal enhancement within the spinal canal. There is mild facet arthropathy in the lower lumbar spine. Changes do not result in any significant spinal canal stenosis Survey images suggest a probable cyst measuring up to 3.2 cm of the left lower pole kidney. IMPRESSION: 1. 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 2. Mild facet arthropathy lower lumbar spine. 3. No significant spinal canal or neuroforaminal stenosis. 4. Red marrow hyperplasia which can be seen in the setting of anemia, obesity, smoking, and chronic d isease.
== END | disposition home or self-care (01) ==
LOC: RADMRIMAIN 13:50
PROVIDERS: ATTEND Orthopaedic Surgery
DX: M51.36 Other intervertebral disc degeneration, lumbar region (principal); Q76.49 Other congenital malformations of spine, not associated with scoliosis; M47.816 Spondylosis without myelopathy or radiculopathy, lumbar region; D75.89 Other specified diseases of blood and blood-forming organs; R10.2 Pelvic and perineal pain
CPT/HCPCS: 72158; A9585

== ENCOUNTER 2023-06-09 11:55 | Day surgery (SDC) | payer BC ==
[2023-06-06 11:27] VITALS: BMI 35.2
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
[~2023-06-09 11:55] MED LIST changes: -LACTATED RINGERS 1,000 ML IV SCH; +Pre Op ABX Message 1 EACH MISC MISCELLANE ONE
[2023-06-09 13:28] VITALS: RESP 16; TEMP 97.1
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
[2023-06-09] MEDS ORDERED: methylPREDNISolone ACETATE 40 MG/ML 1 ML VIAL INTRAARTIC ONE (13:45)
[2023-06-09] MEDS ORDERED: LIDOCAINE 2%-EPI 1:100,000 20 ML VIAL SQ ONE (13:46)
[2023-06-09] MEDS ORDERED: BUPIVACAINE (PF) 0.25% 30 ML VIAL SQ ONE (13:46)
[2023-06-09] MEDS ORDERED: LACTATED RINGERS 1,000 ML IV ONE (14:12)
[2023-06-09 14:15] VITALS: BP 137/76; PULSE 79
--- NOTE | 2023-06-10 14:20 | FL ---
EXAMINATION TYPE: FL guidance operating room DATE OF EXAM: 06/09/2023 Comparison: None Clinical History: 48-year-old male LEFT SI JOINT INJECTION Findings: Left SI joint injection procedure fluoroscopy. FT: 1.2 SECONDS DAP: 0.1866 Gycm2 2 images Impression: Pain management procedural fluoroscopy as above.
== END 2023-06-09 14:19 | disposition home or self-care (01) ==
LOC: OR 11:55
PROVIDERS: ATTEND Orthopaedic Surgery
DX: M46.1 Sacroiliitis, not elsewhere classified (principal); M53.3 Sacrococcygeal disorders, not elsewhere classified; M47.816 Spondylosis without myelopathy or radiculopathy, lumbar region; I10 Essential (primary) hypertension; Z86.16 Personal history of COVID-19; Z90.49 Acquired absence of other specified parts of digestive tract; Z98.890 Other specified postprocedural states; Z83.3 Family history of diabetes mellitus; Z82.49 Family history of ischemic heart disease and other diseases of the circulatory system; Z79.899 Other long term (current) drug therapy
CPT/HCPCS: 27096; J1030; J0665

== ENCOUNTER 2023-06-23 11:56 | Day surgery (SDC) | payer BC ==
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
[2023-06-23] MEDS ORDERED: IOPAMIDOL-370 50ML BTL MISCELLANE ONE ×2 (12:23→12:33)
[2023-06-23] MEDS ORDERED: LIDOCAINE 2%-EPI 1:100,000 20 ML VIAL SQ ONE ×2 (12:24→12:33)
[2023-06-23] MEDS ORDERED: methylPREDNISolone ACETATE 40 MG/ML 1 ML VIAL MISCELLANE ONE ×2 (12:24→12:33)
[2023-06-23] MEDS ORDERED: BUPIVACAINE (PF) 0.5% 30 ML VIAL SQ ONE ×2 (12:24→12:33)
[2023-06-23 12:37] VITALS: TEMP 97.6
--- NOTE | 2023-06-23 12:57 | P.OP ---
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, sacral and sacrococcyg eal region M53.3 Sacrococcygeal disorders, not elsewhere classified Postoperative Diagnosis: M47.818 Spondylosis without myelopathy or radiculopathy, sacral and sa crococcygeal region M53.3 Sacrococcygeal disorders, not elsewhere classified Procedure(s) Performed: 57546 INJECTION PROCEDURE FOR SACROILIAC JOINT, ANESTHETIC/STEROID, WITH IMAGE GUIDANCE (FLUOROSCOPY OR CT) INCLUDING ARTHROGRAPHY WHEN PERFORMED 85032 INJECTION(S), ANESTHETIC AGENT(S) AND/OR STEROID; NERVES INNERVATING THE SACROILIAC JOINT, WITH IMAGE GUIDANCE (IE, FLUOROSCOPY OR COMPUTED TOMOGRAPHY) Anesthesia: local Surgeon: Scout Zambrano Estimated Blood Loss (ml): 2 IV fluids (ml): 0 Urine output (ml): 0 Pathology: none sent Condition: stable Disposition: PACU Description of Procedure: PROCEDURE NOTE Procedure(s) Performed: Implants: None Anesthesia: Local Surgeon: Scout Zambrano Estimated Blood Loss (ml): 1 IV fluids (ml): 0 Urine output (ml): 0 Pathology: none sent Condition: stable Disposition: Stable home Indications for Procedure: [PATIENT] is presenting for evaluation of [SI joint pain]. It was my pleasure to have seen and examined [PATIENT]. Today we have had a chance to go over subjective complaints, physical examination findings and treatments including the natural course history without intervention and various interventional options. The patients imaging demonstrates: [No evidence of spinal pathology on imaging that would account for his symptoms. They have no hip OA that is visible to account for symptoms. There is b/l SIJ sclerosis noted on pelvis films. There is no evidence of any infectious process within the SIJ b/l. No lesions. No fractures.] On the physical exam, [PATIENT] demonstrates: Patient reports pain across the buttocks and around the hip region. SIJ pain. + provocative testing ? of b/l SIJ. I have explained to the patient that as their condition progresses it will cause further pain, continued debility or even progressive pain and issues. Based on the patients imaging, physical exam, and the rapid progression and disabling nature of their symptoms, at this time I recommend surgery in the form of: [Bilateral SI joint injections]. I discussed the risk and benefits of this procedure at length with [PATIENT]. The patient agreed to consider pursuing the procedure above mentioned. Prior to surgery, the patient should follow up with her PCP (Cardio, ID, IM etc) for clearance. Questions were invited and answered, and the patient wishes to proc eed as outlined below. Currently, I am recommendin. [Bilateral SI joint injections] Description of Procedure: [Bilateral] SIJ injection The patient was seen and examined in their room. All protocols were followed. Informed consent was obtained, risks and benefits of the procedure were discussed at length. Risks including bleeding infection damage to the surrounding tissue and risk of reoperation were discussed with the patient. Risk of anesthesia up to and including was discussed with the patient. These are outlined in the risk review. They were willing to accept these risks and all of the risks of the procedure. The site was marked, the patient was willing to proceed with the procedure. The patient was transferred to the injection table. The Site was localized with Ultrasound and marked. Timeout was performed and all parties in agreement with procedure. The patient was then prepped and draped in a normal sterile fashion. Local anesthetic in the form of 2% lidocaine with epi 5cc and .25% marcaine w/o epi 5cc was placed into each injection site and allowed to work. Ultrasound was then used again to localize the SIJ. Picture was captured. [bilateral] SI joints which were then accessed with a 18-gauge needle. US confirmed joint. Once this was confirmed 40 of dexamethasone along with a mixture of lidocaine and Marcaine 2.5cc each were injected into the SI joint. Patient remained stable the entire time without any radicular symptoms during the injection phase. The needles were withdrawn and the area cleaned and Band-Aids placed. The patient then sat up slowly and was stable. They were road tested and were comfortable and stable to go home with family members who accompanied them.
[2023-06-23 13:02] VITALS: BP 149/77; PULSE 71; RESP 18
--- NOTE | 2023-06-23 13:37 | FL ---
EXAMINATION TYPE: FL guidance operating room Intraoperative/procedural fluoroscopic services were pro vided. Total fluoroscopy time is 16 seconds with a total of 7 submitted images to PACS. Please see th e operative/procedural note for further details. DAP: 4.8881 Gycm2
== END 2023-06-23 13:14 | disposition home or self-care (01) ==
LOC: OR 11:56
PROVIDERS: ATTEND Orthopaedic Surgery
DX: M53.3 Sacrococcygeal disorders, not elsewhere classified (principal); M48.061 Spinal stenosis, lumbar region without neurogenic claudication; M47.816 Spondylosis without myelopathy or radiculopathy, lumbar region; I10 Essential (primary) hypertension; Z86.16 Personal history of COVID-19
CPT/HCPCS: 27096; J1030; Q9967; J0665

== ENCOUNTER → 2023-10-04 | Outpatient (CLI) | payer BC, OTHER ==
[2023-10-04 10:36] VITALS: BP 125/80; PULSE 58; RESP 16; TEMP 97.5
--- NOTE | 2023-10-04 14:26 | P.PAINPG ---
PQRS Measure Charge Sheet Comment: A 48 yr old male with a history of severe and chronic LBPx 1 yr secondary to lumbar DDD and spondylosis with facet arthropathy without myelopathy presents today for evaluation. Pain level is provoked at 6 /10 in intensity, constant, localized in the lumbar spine, predominantly axial, sharp in character without shooting pain. Pain is provoked by over activity. Pain is alleviated with at home PT w massage by his x 4 yrs, heat, ice, medications, topical, repositioning and rest. Oswestry axial pain score at 32 . Interventional pain procedures completed include Lumbar TPIs, SEN C6-C7 x1, Lumbar TPIs Patient is currently on Tyl, Flexeril, BioFreeze gel Patient denies any side effects of the medication(s), denies excessive drowsiness or sleepiness, denies suicidal ideation and reports that the current pain medication is helping to control the pain and improve activities of daily living. Patient denies any motor or sensory deficits. Patient denies any fever or night sweats, denies any change in the bowel movements or urination. Physical Examination: -Constitutional: Cooperative. Not in acute distress . - Neurologic: Cranial nerve II to XII intact. No focal neurological deficits. - Psychatric: Alert & oriented x 3. Matching mood & appropriate affect. Judgment and insight intact. - Musculoskeletal: Cervical spine: Muscle bulk/ tone/ strength in the bilateral upper extremities normal Vertebral body tenderness to palpation over Spurling test positive Distraction test positive Facet loading test positive TTP Thoracic spine Muscle bulk / tone/ strength in the bilateral paraspinal muscles normal Vertebral body tender to palpation over Facet loading test positive TTP Lumbar spine: Motor bulk/ tone/ strength lower extremities , thigh and legs : 5/5 Deep tendon reflexes : Normal Knee Jerk. Normal Ankle Jerk . Vertebral body tenderness to palpation Johnston Test positive Lumbar Facet Loading Test positive BL L4-L5, L5-S1 L> R Straight Leg Raise: positive at 35 degrees right side/ left side Gaenslen's Test positive Sacral spine : Severe tenderness over the Sacroiliac joint: right side / left side Range of motion: Flexion of the lumbar spine <60 degrees Range of motion: Extension of the lumbar spine <20 degrees Gaenslen's Test positive right side / left side Jimenez test: positive right side / left side Thigh Thrust Test positive right side / left side Sacral Thrust Test positive right side / left side Imaging: CT without contrast of the lumbar spine from 04/12/23 reviewed Assessment and plan: Chronic LBP secondary to lumbar DDD, spondylosis with facet arthropathy without myelopathy Recommendation of BL MBB L4-L5, L5-S1 #1. May need a series of injections, up until RFA, for optimal pain relief. Risks, benefits of procedure discussed and pt verbalized understanding. Admits to anticoagulant use or medical history of diabetes. Protocol for discontinuation/ continuation of m edications laly procedure discussed. All questions answered. I have spent less than 30 minutes on patient care today. Dr Howard was available by phone for the evaluation of this patient. The time was used to review the medical records including relevant urine studies and Prescription history (MAPs), review of the available imaging, evaluation and examination of the patient, coordination of care with the medical staff and if applicable referring physicians, as well as creation of the medical record PQRS Narrative: Smoking Status Never smoker Hx Alcohol Use (MH) Yes: WEEKENDS Home Medications: Ambulatory Orders Losartan [Cozaar] 100 mg PO DAILY 04/08/21 Ascorbic Acid [Vitamin C] 1,000 mg PO DAILY 06/06/23 Gabapentin [Neurontin] 300 mg PO TID 06/06/23 Milk Thistle Sd Ext/Blessed Th [Milk Thistle 175-120 mg Cap] 1 each PO DAILY 06/06/23 Mv-Min/Folic/K1/Lycopen/Lutein [Centrum Silver Men Tablet] 1 each PO DAILY 06/06/23 [place]-3/Dha/Epa/Fish Oil [Fish Oil 1,000 mg Softgel] 1 each PO DAILY 06/06/23 Turmeric Root Extract [Turmeric] 1,053 mg PO DAILY 06/06/23 Vitamin B Complex 1 each PO DAILY 06/06/23 Zinc Gluconate [Zinc] 50 mg PO DAILY 06/06/23 Ketorolac [Toradol] 10 mg PO BID PRN 06/20/23 Controlled Substance Measures - Controlled Substance Measures Is patient prescribed a controlled substance at discharge?: No
== END ==
LOC: PNWHC3 09:51
PROVIDERS: ATTEND Specialist
DX: M51.37 Other intervertebral disc degeneration, lumbosacral region (principal); M47.817 Spondylosis without myelopathy or radiculopathy, lumbosacral region; G89.29 Other chronic pain
CPT/HCPCS: 99211

== ENCOUNTER 2023-10-20 10:49 | Day surgery (SDC) | payer BC ==
[2023-10-20] MEDS: LACTATED RINGERS 1,000 ML IV SCH (11:01)
[2023-10-20] MEDS ORDERED: MIDAZOLAM 2 MG/2 ML VIAL ONE (11:13)
[2023-10-20] MEDS ORDERED: ROPIVACAINE 5MG/ML 20ML VIAL ONE (11:16)
[2023-10-20 11:28] VITALS: PULSE 78; TEMP 98.5
[2023-10-20] MEDS: IV FLUID CONTINUATION 1,000 ML IV ONE (11:34)
--- NOTE | 2023-10-20 11:36 | P.PCN ---
Date of Procedure: 10/20/23 Surgeon: Bryanna Yu Pathology: none sent Condition: stable Disposition: PACU Description of Procedure: PREOPERATIVE DIAGNOSIS : 1- Lumbar spondylosis with Facet Arthropathy without myelopathy . 2- Lumber degenerative disc disease POSTOPERATIVE DIAGNOSIS: 1- Lumbar spondylosis with Facet Arthropathy without myelopathy . 2- Lumber degenerative disc disease PROCEDURE: Diagnostic bilateral L4 -5 , and L5-S1 medial branch block under fluoroscopy Physician: Bryanna Yu MD ANESTHESIA: Local with 1% lidocaine;and IV moderate conscious sedation by the anesthesia department EBL: Negligible COMPLICATION: None. PROCEDURE INDICATION: Chronic low back pain secondary to Facet arthropathy unresponsive to conservative treatment. PROCEDURE DESCRIPTION: the patient was seen and identified in the preop holding area , risks and benefits and possible complications of the procedure and alternatives were discussed with the patient, and the patient agreed to proceed with the procedure and signed the consent. IV was started and vital signs monitored during the procedure and fluoroscopy was used to maximize the benefit and accuracy of the needle placement, sedation was given to decrease patient anxiety, patient was taken to the procedure room and placed in prone position vital signs monitored. The patient was brought into the procedure room and placed in prone position. the L4 and L5 vertebra were identified by counting from T12 down. The patient has a prolonged transverse process of the L5 vertebral almost contacting the pelvic rim. Skin was prepped with Chloraprep and draped in a sterile manner. Lidocaine 1% was used to numb the skin up at the target points that were chosen as follows: at the L5-S1 level which corresponds to the dorsal ramus of L5 the target points were at the superior medial aspect of the sacral ala on each side of the spine on the AP view of fluoroscopy, and for the L3 and L4 medial branches the target points were the connection between the transverse process and the superior articular process of L4 and L5 respectively on the oblique views of fluoroscopy. I used 22-gauge 3-1/2 inch Quincke spinal needles for this procedure and after contacting bone at the target points mentioned above I injected 1 mL of Ropivacaine 0.5% PF in each needle . Patient tolerated procedure well. At the end of the procedure the needles removed and a bandage applied after the skin was cleaned the cleaning solution. patient was then taken to the recovery room in stable condition and monitored in the recovery room for 20-30 minutes and discharged home in stable condition after discharge criteria met . A copy of the needle placement picture was saved to the C-arm machine.
[2023-10-20 12:11] VITALS: BP 117/62; RESP 16
--- NOTE | 2023-10-20 13:00 | FL ---
Fluoroscopy INDICATION: Pain FINDINGS: Fluoroscopy time: 12.6 seconds. Total dose area product (DAP) in uGy*m?, mGy*cm? (or similar): 0.50235 Images obtained: 5. IMPRESSION: 1. Documentation of fluoroscopy.
== END 2023-10-20 12:11 | disposition home or self-care (01) ==
LOC: ORPAIN 10:49
PROVIDERS: ATTEND Anesthesiology
DX: M51.36 Other intervertebral disc degeneration, lumbar region (principal); M47.816 Spondylosis without myelopathy or radiculopathy, lumbar region; G89.29 Other chronic pain; H91.90 Unspecified hearing loss, unspecified ear; I10 Essential (primary) hypertension; F12.90 Cannabis use, unspecified, uncomplicated; F32.A Depression, unspecified; K21.9 Gastro-esophageal reflux disease without esophagitis; Z79.899 Other long term (current) drug therapy
CPT/HCPCS: 64493; 64494 ×2; 99152; J2250; J2795

== ENCOUNTER → 2023-11-08 | Outpatient (CLI) | payer BC ==
[2023-11-08 15:42] LABS: ALT 41 U/L (10-49); AST 38 U/L (14-35); Albumin 4.7 g/dL (3.8-4.9); Albumin/Globulin Ratio 1.88 Ratio (1.60-3.17); Alkaline Phosphatase 102 U/L (41-126); Blood Urea Nitrogen 20.7 mg/dL (9.0-27.0); Calcium 9.9 mg/dL (8.7-10.3); Carbon Dioxide 21.5 mmol/L (21.6-31.8); Chloride 105 mmol/L (96-109); Globulin 2.5 g/dL (1.6-3.3); Glucose 102 mg/dL (70-110); Potassium 4.7 mmol/L (3.5-5.5); Sodium 140 mmol/L (135-145); Total Bilirubin 0.2 mg/dL (0.3-1.2); Total Protein 7.2 g/dL (6.2-8.2)
[2023-11-08 16:15] LABS: HCT 40.5 % (39.6-50.0); HGB 13.1 g/dL (13.0-17.0); INR 0.93 sec (0.93-1.11); MCH 27.8 pg (27.0-32.0); MCHC 32.3 g/dL (32.0-37.0); MCV 85.8 FL (80.0-97.0); Mean Platelet Volume 11.1 FL (9.5-12.2); NRBC Per 100 WBC 0 X 10*3/uL (0.00-0.01); Platelet Count 228 X 10*3/uL (140-440); Prothrombin Time 10.1 sec (9.9-11.9); RBC 4.72 X 10*6/uL (4.40-5.60); RDW 12.5 % (11.5-14.5); WBC 6.71 X 10*3/uL (4.50-10.00)
== END | disposition home or self-care (01) ==
LOC: LABWHC1 09:55
PROVIDERS: ATTEND Orthopaedic Surgery
DX: M47.817 Spondylosis without myelopathy or radiculopathy, lumbosacral region (principal)
CPT/HCPCS: 36415; 80053; 85027; 85610; 86850; 86900; 86901; 87070

== ENCOUNTER 2023-11-14 05:41 | Day surgery (SDC) | payer BC ==
[2023-11-08 13:42] VITALS: BMI 34.4
[~2023-11-14 05:41] MED LIST changes: +ONDANSETRON 4 MG/2 ML VIAL IVP PRN; -Pre Op ABX Message 1 EACH MISC MISCELLANE ONE; +TRANEXAMIC 1,000 MG/100ML-NACL 1,000 MG in SALINE 1 100ML.BAG IVPB PRN
[2023-11-14] MEDS ORDERED: LACTATED RINGERS 1,000 ML IV SCH (06:09)
[2023-11-14] MEDS: GABAPENTIN 300 MG CAP PO PRN (06:45)
[2023-11-14] MEDS: ACETAMINOPHEN TAB 500 MG TAB PO PRN (06:45)
[2023-11-14] MEDS: LACTATED RINGERS 1,000 ML IV ONE ×2 (06:48→06:55)
[2023-11-14] MEDS: LIDOCAINE 1% (10MG/ML) FOR IV START INTRADERMA PRN (06:48)
[2023-11-14] MEDS: ONDANSETRON 4 MG/2 ML VIAL IVP ONE (06:52)
[2023-11-14] MEDS: DEXAMETHASONE SOD PHOSPHATE 4 MG/ML 1 ML VIAL IV ONE (06:52)
[2023-11-14] MEDS ORDERED: HYDROmorphone 0.5 MG/0.5 ML SYRINGE IVP PRN (07:00)
[2023-11-14] MEDS ORDERED: MIDAZOLAM 2 MG/2 ML VIAL IV PRN (07:00)
[2023-11-14 07:06] LABS: Glucose,Whole Blood 110 mg/dL (70-110)
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
[2023-11-14] MEDS ORDERED: MIDAZOLAM 2 MG/2 ML VIAL ONE (07:30)
[2023-11-14] MEDS ORDERED: LIDOCAINE 1% INJ 10MG/ML (20 ML MDV) ONE (07:30)
[2023-11-14] MEDS ORDERED: HYDROmorphone (PF) 1 MG/ML ONE (07:30)
[2023-11-14] MEDS ORDERED: PROPOFOL 10 MG/ML 20 ML VIAL IV ONE (07:30)
[2023-11-14] MEDS ORDERED: NEOSTIGMINE 1 MG/ML 10 ML VIAL ONE (07:30)
[2023-11-14] MEDS ORDERED: KETAMINE HCL IN 0.9 % NACL 50 MG/5 ML SYRINGE ONE (07:30)
[2023-11-14] MEDS ORDERED: SUCCINYLCHOLINE CHLORIDE 200 MG/10 ML VIAL IV ONE (07:30)
[2023-11-14] MEDS ORDERED: KETOROLAC 30 MG/ML 1 ML VIAL ONE (07:30)
[2023-11-14] MEDS ORDERED: GLYCOPYRROLATE 0.2 MG/ML 2 ML VIAL ONE (07:30)
[2023-11-14] MEDS ORDERED: ePHEDrine 50 MG/ML 1 ML VIAL ONE (07:30)
[2023-11-14] MEDS ORDERED: ROCURONIUM 10 MG/ML (5 ML VIAL) IV ONE (07:30)
[2023-11-14] MEDS ORDERED: fentaNYL (PF) 50 MCG/ML 2 ML AMP ONE (07:30)
[2023-11-14] MEDS: LIDOCAINE 2%-EPI 1:100,000 20 ML VIAL SQ ONE ×2 (08:04)
[2023-11-14] MEDS: BUPIVACAINE (PF) 0.5% 30 ML VIAL SQ ONE ×2 (08:04)
--- NOTE | 2023-11-14 09:47 | XR ---
EXAMINATION TYPE: XR lumbar spine 1V, FL guidance operating room Intraoperative/procedural fluoroscop ic services were provided. Total fluoroscopy time is 1 min 26 seconds with a total of 11 submitted im ages to PACS. Please see the operative/procedural note for further details. DAP: 9.4616 Gycm2
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
[2023-11-14 10:18] VITALS: TEMP 97.2
[2023-11-14 13:05] VITALS: BP 129/96; PULSE 69; RESP 14
== END 2023-11-14 12:33 | disposition home or self-care (01) ==
LOC: OR 05:41
PROVIDERS: ATTEND Orthopaedic Surgery
DX: M47.817 Spondylosis without myelopathy or radiculopathy, lumbosacral region (principal); M48.061 Spinal stenosis, lumbar region without neurogenic claudication; I10 Essential (primary) hypertension; Z90.49 Acquired absence of other specified parts of digestive tract
CPT/HCPCS: 72020; 64772; J2250; J0330; J1100; J2710; J0690; J2405; J2001; J3010; J1885; J1170; J2704; J0665

== ENCOUNTER → 2024-01-01 | Outpatient (CLI) | payer BC ==
[2024-01-01 14:18] VITALS: BP 123/91; PULSE 60; RESP 16
--- NOTE | 2024-01-10 07:39 | P.PAINPG ---
PQRS Measure Charge Sheet Comment: A 48 yr old male with a history of severe and chronic neck and LBP > 1 yr secondary to cervical and lumbar DDD and spondylosis with facet arthropathy without myelopathy presents today for evaluation. He underwent a BL transection of L4-L5, L5-S1 w Dr Zambrano where he states he experienced 100 % pain relief s/p procedure. Pain level is provoked at 6 /10 in intensity, constant, localized in the lumbar spine, predominantly axial, sharp in character without shooting pain. Pain is provoked by over activity. Pain is alleviated with at home PT w massage by his x 4 yrs, heat, ice, medications, topical, repositioning and rest. Cervical disability score at 22 . Interventional pain procedures completed include Lumbar TPIs, SEN C6-C7 x1, Lumbar TPIs, L SI x1, BL MBB L3-L5 x1, BL Transection L3-L5 x1 (November 2023) Patient is currently on Tyl, Flexeril, BioFreeze gel Patient denies any side effects of the medication(s), denies excessive drowsiness or sleepiness, denies suicidal ideation and reports that the current pain medication is helping to control the pain and improve activities of daily living. Patient denies any motor or sensory deficits. Patient denies any fever or night sweats, denies any change in the bowel movements or urination. Physical Examination: -Constitutional: Cooperative. Not in acute distress . - Neurologic: Cranial nerve II to XII intact. No focal neurological deficits. - Psychatric: Alert & oriented x 3. Matching mood & appropriate affect. Judgment and insight intact. - Musculoskeletal: Cervical spine: Muscle bulk/ tone/ strength in the bilateral upper extremities normal Vertebral body tenderness to palpation over Spurling test positive Distraction test positive Facet loading test positive TTP Thoracic spine Muscle bulk / tone/ strength in the bilateral paraspinal muscles normal Vertebral body tender to palpation over C6 Johnston test positive BL C6-C7 Facet loading test positive TTP Lumbar spine: Motor bulk/ tone/ strength lower extremities , thigh and legs : 5/5 Deep tendon reflexes : Normal Knee Jerk. Normal Ankle Jerk . Vertebral body tenderness to palpation Johnston Test positive Lumbar Facet Loading Test positive BL L4-L5, L5-S1 L> R Straight Leg Raise: positive at 35 degrees right side/ left side Gaenslen's Test positive Sacral spine : Severe tenderness over the Sacroiliac joint: right side / left side Range of motion: Flexion of the lumbar spine <60 degrees Range of motion: Extension of the lumbar spine <20 degrees Gaenslen's Test positive right side / left side Jimenez test: positive right side / left side Thigh Thrust Test positive right side / left side Sacral Thrust Test positive right side / left side Imaging: CT without contrast of the lumbar spine from 04/12/23 reviewed Assessment and plan: Chronic neck and LBP secondary to DDD, spondylosis with facet arthropathy without myelopathy Recommendation of SEN C6-C7 #1. May need a series of injections for optimal pain relief. Risks, benefits of procedure discussed and pt verbalized understanding. Admits to anticoagulant use or medical history of diabetes. Protocol for discontinuation/ continuation of medications laly procedure discussed. All questions answered. I have spent less than 30 minutes on patient care today. Dr Howard was available by phone for the evaluation of this patient. The time was used to review the medical records including relevant urine studies and Prescription history (MAPs), review of the available imaging, evaluation and examination of the patient, coordination of care with the medical staff and if applicable referring physicians, as well as creation of the medical record PQRS Narrative: Smoking Status Never smoker Hx Alcohol Use (MH) Yes: WEEKENDS Home Medications: Ambulatory Orders Losartan [Cozaar] 100 mg PO DAILY 04/08/21 Ascorbic Acid [Vitamin C] 1,000 mg PO DAILY 06/06/23 Milk Thistle Sd Ext/Blessed Th [Milk Thistle 175-120 mg Cap] 1 each PO DAILY 06/06/23 Mv-Min/Folic/K1/Lycopen/Lutein [Centrum Silver Men Tablet] 1 each PO DAILY 06/06/23 [place]-3/Dha/Epa/Fish Oil [Fish Oil 1,000 mg Softgel] 1 each PO DAILY 06/06/23 Turmeric Root Extract [Turmeric] 1,053 mg PO DAILY 06/06/23 Vitamin B Complex 1 each PO DAILY 06/06/23 Zinc Gluconate [Zinc] 50 mg PO DAILY 06/06/23 Tirzepatide [Zepbound] 7.5 mg SQ FR 10/17/23 Cyclobenzaprine [Flexeril] 5 mg PO BID PRN #30 tablet 11/14/23 Gabapentin [Neurontin Oral Solution] 300 mg PO TID 10 Days #30 ml 11/14/23 HYDROcodone/APAP 7.5-325MG [[place] 7.5] 1 each PO Q4HR PRN #42 tab 11/14/23 Sennosides/Docusate Sodium [Senna-S 8.6-50 mg Tablet] 2 each PO DAILY PRN #30 tablet 11/14/23 Controlled Substance Measures - Controlled Substance Measures Is patient prescribed a controlled substance at discharge?: No
== END ==
LOC: PNWHC3 14:00
PROVIDERS: ATTEND Specialist
DX: M47.812 Spondylosis without myelopathy or radiculopathy, cervical region (principal); M47.816 Spondylosis without myelopathy or radiculopathy, lumbar region; M51.36 Other intervertebral disc degeneration, lumbar region; M50.323 Other cervical disc degeneration at C6-C7 level
CPT/HCPCS: 99211

== ENCOUNTER 2024-01-25 07:53 | Day surgery (SDC) | payer BC ==
[~2024-01-25 07:53] MED LIST changes: +LACTATED RINGERS 1,000 ML IV SCH; -ONDANSETRON 4 MG/2 ML VIAL IVP PRN; -TRANEXAMIC 1,000 MG/100ML-NACL 1,000 MG in SALINE 1 100ML.BAG IVPB PRN
[2024-01-25 08:18] VITALS: RESP 16
[2024-01-25] MEDS ORDERED: IOPAMIDOL M200 10 ML VIAL ONE (09:18)
[2024-01-25] MEDS ORDERED: DEXAMETHASONE SOD PHOSPHATE 10 MG/ML 1 ML VIAL ONE (09:18)
--- NOTE | 2024-01-25 09:27 | P.PCN ---
Date of Procedure: 01/25/24 Procedure(s) Performed: . PROCEDURE 1. Cervical epidural steroid injection under fluoroscopic guidance, C6-7 (fluoroscopy images available in the radiology department ) 2. Cervical epidurogram. PREOPERATIVE DIAGNOSIS: 1- Cervical Degenerative Disc Diseases 2- Cervical radiculopathy. POSTOPERATIVE DIAGNOSIS: : 1- Cervical Degenerative Disc Diseases , 2- Cervical radiculopathy. ANESTHESIA: Local anesthesia with lidocaine 1% 3 ml only EBL 0 PROCEDURE INDICATION: The patient with neck pain and radiculitis unresponsive to conservative treatment consents for procedure. PROCEDURE DESCRIPTION / TECHNIQUE: The patient was seen and identified in the preoperative area. Risks, benefits, complications, including but not limited to infections ,bleeding , allergic reactions to the medications ,and not complete pain releife, and alternatives were discussed with the patient, the patient agr eed to proceed with the procedure and signed the consent. Patient was taken to the OR and time out was completed. The patient was placed in the prone position on the procedure table. A pillow was placed under the patients chest to increase the cervical interlaminar space. The cervical area was prepped and draped in the usual sterile fashion. Vital signs were closely monitored during the procedure. Using anterior-posterior fluoroscopy, the C6-7 interlaminar space was identified and the skin over this site was marked and then infiltrated with 1% lidocaine subcutaneously. Subsequently, a 20-gauge 3-1/2-inch Tuohy epidural needle was inserted and advanced toward the epidural space by means of the ``hanging-drop technique and guided by AP and lateral fluoroscopy. The correct needle position in the epidural space was verified with the injection of 2 mL of the water soluble contrast dye [id number]-[id number] and observing an excellent epidurogram with the epidural spread of the dye, after negative aspiration for blood and CSF and in the absence of paresthesias. then, mixture containing 20 mg Dexamethasone and 2 ml of preservative-free normal saline injected and a washout of epidurogram w as seen. Needle was withdrawn intact, skin was cleansed, and bandages were applied. Complications= none. Disposition= patient was placed in supine position and transferred to the recovery room area in stable condition and there was no evidence of upper or lower extremity motor or sensory deficit after the procedure patient was discharged from recovery room after discharge criteria met and home discharge instructions was given by the staff and patient will follow with the pain clinic in 2-4 weeks
[2024-01-25 09:54] VITALS: BP 132/81; PULSE 65
--- NOTE | 2024-01-25 10:01 | FL ---
Fluoroscopy History: ROBB ROBB FL TIME 2.9 SEC DAP .[id number]
[2024-01-25 10:10] VITALS: TEMP 97.1
== END 2024-01-25 09:56 | disposition home or self-care (01) ==
LOC: ORPAIN 07:53
PROVIDERS: ATTEND Specialist
DX: M50.123 Cervical disc disorder at C6-C7 level with radiculopathy (principal)
CPT/HCPCS: 62321; J1100; Q9966

== ENCOUNTER → 2024-02-21 | Outpatient (CLI) | payer BC | LOC: PNWHC3 07:30 | PROVIDERS: ATTEND Specialist | DX: M47.22 Other spondylosis with radiculopathy, cervical region (principal) | CPT/HCPCS: 99211 ==

== ENCOUNTER 2024-04-04 06:49 | Day surgery (SDC) | payer BC ==
[2024-04-04 07:22] VITALS: RESP 16; TEMP 97.5
[2024-04-04] MEDS: IV FLUID CONTINUATION 1,000 ML IV ONE (07:22)
[2024-04-04] MEDS: LACTATED RINGERS 1,000 ML IV SCH (07:22)
[2024-04-04 07:25] LABS: Glucose,Whole Blood 117 mg/dL (70-110)
[2024-04-04] MEDS ORDERED: MIDAZOLAM 2 MG/2 ML VIAL ONE (07:50)
[2024-04-04] MEDS ORDERED: ROPIVACAINE 5MG/ML 20ML VIAL ONE (07:50)
--- NOTE | 2024-04-04 08:03 | P.PCN ---
Date of Procedure: 04/04/24 Description of Procedure: PREOPERATIVE DIAGNOSIS: Cervical facet arthropathy/cervical spondylosis without myelopathy POSTOPERATIVE DIAGNOSIS: Cervical facet arthropathy/cervical spondylosis without myelopathy PROCEDURE: Left C5-C6, and C6-C7 medial branch nerve block under fluoroscopic guidance. SURGEON: Daisy Beck REGISTERED NURSE BEHAVIORAL HEALTH: None ANESTHESIA: Local anesthesia , and IV sedation: Versed 2 mg +1 mg +1 mg Sedation supervision timings: [id number] EBL: None PROCEDURE INDICATION: The patient with neck pain returns here for diagnostic medial branch block, failed with the conservative therapy. PROCEDURE DESCRIPTION: The patient was seen and identified in the preoperative area. Risks, benefits, complications, and alternatives were discussed with the patient; the patient agreed to proceed with the procedure and signed the consent. Vital signs were stable. Standard ASA monitoring applied. Patient was taken to the OR and time out was completed. The patient was placed in the prone position on the procedure table. ChloraPrep x 2 used for cleaning. Cervical area was prepped and draped in the usual sterile fashion. Critical pause was taken. Vital signs were closely monitored during the procedure. Using anteroposterior fluoroscopic with 10 cephalad tilt Waists of C5, C6, and C7 identified and marked with the sterile marker. Skin and subcutaneous tissue injected with a total of 3 mL of lidocaine 1% using a 27-gauge 1-1/2 inch needle. Using a 22-gauge 3-1/2 inch spinal needles 3. Each spinal needle entered to the corresponding waists. Using cross-table lateral fluoroscopy, the centroid of the trapezoid of C5, C6, and C7. [place] were guided by fluoroscopy to the centroid of the trapezoid of C5, C6, and C7. After negative aspiration for blood and CSF, 0.5 mL of block solution injected at each level. The block solution containing 2ml of 0.5% bupivacaine preservative free. [place] were withdrawn intact. Skin was cleansed and bandages were applied. COMPLICATIONS: None. COMMENTS: DISPOSITION/PLAN: The patient was placed in a supine position and transferred to the recovery area in a stable condition for observation and was discharged from the recovery room after meeting discharge criteria. Home discharge instructions given to the patient by the staff. The patient was reexamined prior to discharge. The patient will schedule a repeat procedure in 2-4 weeks.
[2024-04-04] MEDS: LACTATED RINGERS 1,000 ML IV ONE (08:05)
[2024-04-04 08:24] VITALS: BP 119/85; PULSE 78
--- NOTE | 2024-04-04 08:46 | FL ---
EXAMINATION TYPE: FL guided pain mgmt statistic DATE OF EXAM: 04/04/2024 8:03 AM COMPARISON: Pre Operative Images if available both CT/MRI or plain film CLINICAL INDICATION: Male, 49 years old with history of C/TH Facet Blk; TECHNIQUE: FL guided pain mgmt statistic, multiple fluoroscopic images provided for procedure. Total fluoroscopy time: 13.1 seconds Total submitted images to PACS: 3 DAP: 0.04656 mGym2 Gycm2 uGym2 cGycm2 or equivalent. FINDINGS: Fluoroscopic images during injection for pain management demonstrate multilevel degeneration changes throughout the spine. No evidence for fracture. No acute process identified. IMPRESSION: 1. No evidence for intraoperative complication. 2. Please see the operative/procedural note for further details. [facility], , 04/04/2024 8:43 AM
== END 2024-04-04 08:42 | disposition home or self-care (01) ==
LOC: ORPAIN 06:49
DX: M47.812 Spondylosis without myelopathy or radiculopathy, cervical region
CPT/HCPCS: 64490; 64491

== ENCOUNTER → 2024-04-18 | Outpatient (CLI) | payer BC ==
[2024-04-18 09:52] VITALS: BP 137/97; PULSE 89; RESP 16; TEMP 97.3
--- NOTE | 2024-04-18 13:56 | P.PAINPG ---
PQRS Measure Charge Sheet Comment: A 49 yr old male with a history of severe and chronic neck and LBP > 1 yr secondary to cervical and radiculopathy, spondylosis with facet arthropathy without myelopathy presents today for evaluation s/p L MBB C5-C6/ C6-C7 #1. Pt states he experienced 100 % pain relief x 1 wk s/p procedure. Pain level is pro voked at 7 /10 in intensity, constant, localized in the lower cervical spine, predominantly axial, sharp in character without shooting pain. Pain is provoked by over activity. Pain is alleviated with at home PT w massage by his x 4 yrs, heat, ice, medications, topical, repositioning and rest. Interventional pain procedures completed include Lumbar TPIs, SEN C6-C7 x1, Lumbar TPIs, L SI x1, BL MBB L3-L5 x1, BL Transection L3-L5 x1 (November 2023) Patient is currently on Tyl, Flexeril, BioFreeze gel Patient denies any side effects of the medication(s), denies excessive drowsiness or sleepiness, denies suicidal ideation and reports that the current pain medication is helping to control the pain and improve activities of daily living. Patient denies any motor or sensory deficits. Patient denies any fever or night sweats, denies any change in the bowel movements or urination. Physical Examination: -Constitutional: Cooperative. Not in acute distress . - Neurologic: Cranial nerve II to XII intact. No focal neurological deficits. - Psychatric: Alert & oriented x 3. Matching mood & appropriate affect. Judgment and insight intact. - Musculoskeletal: Cervical spine: Muscle bulk/ tone/ strength in the bilateral upper extremities normal Vertebral body tenderness to palpation over Spurling test positive Distraction test positive Facet loading test positive TTP Thoracic spine Muscle bulk / tone/ strength in the bilateral paraspinal muscles normal Vertebral body tender to palpation over C6 Johnston test positive BL C6-C7 Facet loading test positive TTP L C5-C6/ C6-C7 Lumbar spine: Motor bulk/ tone/ strength lower extremities , thigh and legs : 5/5 Deep tendon reflexes : Normal Knee Jerk. Normal Ankle Jerk . Vertebral body tenderness to palpation Johnston Test positive Lumbar Facet Loading Test positive BL L4-L5, L5-S1 L> R Straight Leg Raise: positive at 35 degrees right side/ left side Gaenslen's Test positive Sacral spine : Severe tenderness over the Sacroiliac joint: right side / left side Range of motion: Flexion of the lumbar spine <60 degrees Range of motion: Extension of the lumbar spine <20 degrees Gaenslen's Test positive right side / left side Jimenez test: positive right side / left side Thigh Thrust Test positive right side / left side Sacral Thrust Test positive right side / left side Imaging: CT without contrast of the lumbar spine from 04/12/23 reviewed Assessment and plan: Chronic neck and LBP secondary to radiculopathy, spondylosis with facet arthropathy without myelopathy Recommendation of L MBB C5-C6/ C6-C7 #1. Risks, benefits of procedure discussed and pt verbalized understanding. Admits to anticoagulant use or medical history of diabetes. Protocol for discontinuation/ continuation of medications laly procedure discussed. Minimal anesthesia including Fentanyl and Versed if clinically indicated. All questions answered. I have spent less than 30 minutes on patient care today. Dr Howard was available by phone for the evaluation of this patient. The time was used to review the medical records including relevant urine studies and Prescription history (MAPs), review of the available imaging, evaluation and examination of the patient, coordination of care with the medical staff and if applicable referring physicians, as well as creation of the medical record PQRS Narrative: Smoking Status Never smoker Hx Alcohol Use (MH) Yes: WEEKENDS Home Medications: Ambulatory Orders Losartan [Cozaar] 100 mg PO DAILY 04/08/21 Ascorbic Acid [Vitamin C] 1,000 mg PO DAILY 06/06/23 Milk Thistle Sd Ext/Blessed Th [Milk Thistle 175-120 mg Cap] 1 each PO DAILY 06/06/23 Mv-Min/Folic/K1/Lycopen/Lutein [Centrum Silver Men Tablet] 1 each PO DAILY 06/06/23 [place]-3/Dha/Epa/Fish Oil [Fish Oil 1,000 mg Softgel] 1 each PO DAILY 06/06/23 Turmeric Root Extract [Turmeric] 1,053 mg PO DAILY 06/06/23 Vitamin B Complex 1 each PO DAILY 06/06/23 Zinc Gluconate [Zinc] 50 mg PO DAILY 06/06/23 Tirzepatide [Zepbound] 15 mg SQ SA 10/17/23 Controlled Substance Measures - Controlled Substance Measures Is patient prescribed a controlled substance at discharge?: No
== END ==
LOC: PNWHC3 08:17
PROVIDERS: ATTEND Specialist
DX: M47.22 Other spondylosis with radiculopathy, cervical region (principal)
CPT/HCPCS: 99211

== ENCOUNTER 2024-05-10 12:58 | Day surgery (SDC) | payer BC ==
[2024-05-10 13:36] VITALS: RESP 16; TEMP 97.8
[2024-05-10] MEDS: IV FLUID CONTINUATION 1,000 ML IV ONE ×2 (13:36→14:35)
[2024-05-10] MEDS ORDERED: MIDAZOLAM 2 MG/2 ML VIAL ONE (14:13)
[2024-05-10] MEDS ORDERED: ROPIVACAINE 5MG/ML 20ML VIAL ONE (14:13)
--- NOTE | 2024-05-10 14:29 | P.PCN ---
Date of Procedure: 05/10/24 Surgeon: Bryanna Yu Pathology: none sent Condition: stable Disposition: PACU Description of Procedure: PROCEDURE: Left medial branch block for the medial branches: C5, C6, and C7 under fluoroscopic guidance Diagnosis: Cervical spondylosis without myelopathy ANESTHESIA: Local with 1% lidocaine; IV moderate conscious sedation using 2 mg of Versed only Sedation time:[id number] EBL: Minimal PROCEDURE INDICATION: The patient with neck pain secondary to cervical arthropathy who had more than 50% relief of her pain with previous diagnostic cervical medial branch block. PROCEDURE DESCRIPTION / TECHNIQUE: The patient was seen and identified in the preoperative area. Risks, benefits, complications, and alternatives were discussed with the patient, the patient agreed to proceed with the procedure and signed the consent. IV was started. Vital signs remained stable throughout the procedure. Patient was taken to the OR and time out was completed. The patient was placed in the supine position on the procedure table. The cervical area was prepped and draped in the usual sterile fashion. Critical pause was taken. Vital signs were closely monitored during the procedure. Conscious sedation was used during the procedure to decrease patients anxiety. Using cross-table lateral fluoroscopy, the center of the trapezoid-shaped cervical pillars of C5 , C6 and the superior articular process of C7 were identified, marked, and localized with 1% lidocaine. Subsequently, a 25 guage3- 1/2 inch Quincke spinal needle was advanced guided by fluoroscopy to the target points mentioned above. after contacting bone at the above-mentioned target points I injected 0.5 MLS of ropivacaine 0.5% at each level. [place] were removed. Skin was cleansed and bandages were applied. COMPLICATIONS: No acute complications. COMMENTS: A copy of needle placement was saved to the C-arm machine at the radiology department. DISPOSITION / PLANS: The patient was placed in a supine position and transferred to the recovery area in a stable condition for observation and was discharged from the recovery room after meeting discharge criteria. Home discharge instructions given to the patient by the staff.
--- NOTE | 2024-05-10 14:58 | FL ---
Fluoroscopy INDICATION: Pain FINDINGS: Fluoroscopy time: 30 seconds. Total dose area product (DAP) in uGy*m?, mGy*cm? (or similar): 0.09102 Images obtained: 3. Images were obtained over the cervical spine IMPRESSION: 1. Documentation of fluoroscopy. [facility], , 05/10/2024 2:56 PM
[2024-05-10 14:59] VITALS: BP 124/83; PULSE 84
== END 2024-05-10 15:05 | disposition home or self-care (01) ==
LOC: ORPAIN 12:58
PROVIDERS: ATTEND Anesthesiology
DX: M47.812 Spondylosis without myelopathy or radiculopathy, cervical region (principal); Z79.899 Other long term (current) drug therapy
CPT/HCPCS: 64490; 64491

== ENCOUNTER → 2024-05-20 | Outpatient (CLI) | payer BC ==
[2024-05-20 09:08] VITALS: BP 126/95; PULSE 80; RESP 16
--- NOTE | 2024-05-20 15:05 | P.PAINPG ---
PQRS Measure Charge Sheet Comment: A 49 yr old male with a history of severe and chronic neck and LBP > 1 yr secondary to cervical and radiculopathy, spondylosis with facet arthropathy without myelopathy presents today for evaluation s/p L MBB C5-C6/ C6-C7 #2. Pt states he experienced 100 % pain relief x 3 days s/p procedure. Pain level is p rovoked at 7 /10 in intensity, constant, localized in the lower cervical spine, predominantly axial, sharp in character without shooting pain. Pain is provoked by over activity. Pain is alleviated with at home PT w massage by his x 4 yrs, heat, ice, medications, topical, repositioning and rest. Interventional pain procedures completed include Lumbar TPIs, SEN C6-C7 x1, Lumbar TPIs, L SI x1, BL MBB L3-L5 x1, BL Transection L3-L5 x1 (November 2023), L MBB C5-C7 x2 Patient is currently on Tyl, Flexeril, BioFreeze gel Patient denies any side effects of the medication(s), denies excessive drowsin ess or sleepiness, denies suicidal ideation and reports that the current pain medication is helping to control the pain and improve activities of daily living. Patient denies any motor or sensory deficits. Patient denies any fever or night sweats, denies any change in the bowel movements or urination. Physical Examination: -Constitutional: Cooperative. Not in acute distress . - Neurologic: Cranial nerve II to XII intact. No focal neurological deficits. - Psychatric: Alert & oriented x 3. Matching mood & appropriate affect. Judgment and insight intact. - Musculoskeletal: Cervical spine: Muscle bulk/ tone/ strength in the bilateral upper extremities normal Vertebral body tenderness to palpation over Spurling test positive Distraction test positive Facet loading test positive TTP Thoracic spine Muscle bulk / tone/ strength in the bilateral paraspinal muscles normal Vertebral body tender to palpation over C6 Johnston test positive BL C6-C7 Facet loading test positive TTP L C5-C6/ C6-C7 Lumbar spine: Motor bulk/ tone/ strength lower extremities , thigh and legs : 5/5 Deep tendon reflexes : Normal Knee Jerk. Normal Ankle Jerk . Vertebral body tenderness to palpation Johnston Test positive Lumbar Facet Loading Test positive BL L4-L5, L5-S1 L> R Straight Leg Raise: positive at 35 degrees right side/ left side Gaenslen's Test positive Sacral spine : Severe tenderness over the Sacroiliac joint: right side / left side Range of motion: Flexion of the lumbar spine <60 degrees Range of motion: Extension of the lumbar spine <20 degrees Gaenslen's Test positive right side / left side Jimenez test: positive right side / left side Thigh Thrust Test positive right side / left side Sacral Thrust Test positive right side / left side Imaging: CT without contrast of the lumbar spine from 04/12/23 reviewed Assessment and plan: Chronic neck and LBP secondary to radiculopathy, spondylosis with facet arthropathy without myelopathy Recommendation of L RFA C5-C6/ C6-C7. Risks, benefits of procedure discussed and pt verbalized understanding. Admits to anticoagulant use or medical history of diabetes. Protocol for discontinuation/ continuation of medications laly procedure discussed. Minimal anesthesia including Fentanyl and Versed if clinically indicated. All questions answered. I have spent less than 30 minutes on patient care today. Dr Howard was available by phone for the evaluation of this patient. The time was used to review the medical records including relevant urine studies and Prescription history (MAPs), review of the available imaging, evaluation and examination of the patient, coordination of care with the medical staff and if applicable referring physicians, as well as creation of the medical record - Pain Location Neck Non-Pharmacological Interventions: Heat, Ice, Massage, Physical Therapy Pharmacological Interventions: Epidural, PRN Medication, Topical Medication PQRS Narrative: Smoking Status Never smoker Hx Alcohol Use (MH) Yes: WEEKENDS Home Medications: Ambulatory Orders Losartan [Cozaar] 100 mg PO DAILY 04/08/21 Ascorbic Acid [Vitamin C] 1,000 mg PO DAILY 06/06/23 Milk Thistle Sd Ext/Blessed Th [Milk Thistle 175-120 mg Cap] 1 each PO DAILY 06/06/23 Mv-Min/Folic/K1/Lycopen/Lutein [Centrum Silver Men Tablet] 1 each PO DAILY 06/06/23 [place]-3/Dha/Epa/Fish Oil [Fish Oil 1,000 mg Softgel] 1 each PO DAILY 06/06/23 Turmeric Root Extract [Turmeric] 1,053 mg PO DAILY 06/06/23 Vitamin B Complex 1 each PO DAILY 06/06/23 Zinc Gluconate [Zinc] 50 mg PO DAILY 06/06/23 Tirzepatide [Zepbound] 15 mg SQ SA 10/17/23 Controlled Substance Measures - Controlled Substance Measures Is patient prescribed a controlled substance at discharge?: No
== END ==
LOC: PNWHC3 08:54
PROVIDERS: ATTEND Specialist
DX: M47.22 Other spondylosis with radiculopathy, cervical region (principal)
CPT/HCPCS: 99211

== ENCOUNTER 2024-06-06 12:41 | Day surgery (SDC) | payer BC ==
[2024-06-06 13:15] LABS: Glucose,Whole Blood 92 mg/dL (70-110)
[2024-06-06] MEDS: IV FLUID CONTINUATION 1,000 ML IV ONE ×2 (13:15→14:08)
[2024-06-06 13:19] VITALS: TEMP 97
[2024-06-06] MEDS ORDERED: ROPIVACAINE 5MG/ML 20ML VIAL ONE (13:41)
[2024-06-06] MEDS ORDERED: methylPREDNISolone ACETATE 40 MG/ML 1 ML VIAL ONE (13:41)
[2024-06-06] MEDS ORDERED: fentaNYL (PF) 50 MCG/ML 2 ML AMP ONE (13:41)
[2024-06-06] MEDS ORDERED: MIDAZOLAM 2 MG/2 ML VIAL ONE (13:41)
--- NOTE | 2024-06-06 14:04 | P.PCN ---
Date of Procedure: 06/06/24 Procedure(s) Performed: PREOPERATIVE DIAGNOSIS: Cervical spondylosis with Facet Arthropathy without myelopathy. POSTOPERATIVE DIAGNOSIS: Cervical spondylosis with Facet Arthropathy without myelopathy. PROCEDURES: Radiofrequency thermocoagulation Left C5, C6 ,C7 medial branch with Fluroscopy [place](fluoroscopy was available in Radiology department ) (to denervate the facet joint at Left C5- 6,C6-7 ) ANESTHESIA: moderate sedation with fentanyl 200 micrograms and Versed 2 mg (sedation started at 13:41, end at 13:58 EBL: Minimal PROCEDURE INDICATION: The patient with neck pain secondary to cervical arthropathy who had more than 50% relief of her pain with previous diagnostic cervical medial branch block. PROCEDURE DESCRIPTION / TECHNIQUE: The patient was seen and identified in the preoperative area. Risks, benefits, complications, and alternatives were discussed with the patient, the patient agreed to proceed with the procedure and signed the consent. IV was started. Vital signs remained stable throughout the procedure. Patient was taken to the OR and time out was completed. The patient was placed in the Lateral position on the procedure table. The cervical area was prepped and draped in the usual sterile fashion. Critical pause was taken. Vital signs were closely monitored during the procedure. Conscious sedation was used during the procedure to decrease patients anxiety. Using cross-table lateral fluoroscopy, the centroid of the trapezoid of Left C5, C6 ,C7 were identified, marked, and localized with 1% lidocaine. Subsequently, a 20 [id number] radiofrequency cannula with a 10-mm active tip was advanced guided by fluoroscopy to the centroid of the trapezoid of Left C5, C6,C7 . Needle tip position was confirmed at the centroid of the trapezoids of Left C5, C6 ,C7 with anteroposterior fluoroscopy. Each site then underwent sensory testing at 50 Hz and 0 to 1 volt and motor testing at 2 Hz and 0 to 3 volt with local stimulation, but no radicular symptoms down the arm. Thereafter each sites underwent radiofrequency thermocoagulation at 80 degrees celsius for 90 seconds after injecting 0.5 ml of PF Ropivacaine 0.5 %. After thermocoagulation, 1 ml of the block solution containing Depo-Medrol 40 mg and 3 mL of preservative-free normal saline was injected at the left C5,C6,C7 levels after negative aspiration of CSF and blood and with no paresthesias. Cannulas were retracted while injecting lidocaine 1% until the needle is out. Skin was cleansed and bandages were applied. COMPLICATIONS: No acute complications. DISPOSITION / PLANS: The patient was placed in a supine position and transferred to the recovery area in a stable condition for observation and was discharged from the recovery room after meeting discharge criteria. Home discharge instructions given to the patient by the staff. The patient was reexamined prior to discharge. The patient will schedule a follow up in the clinic in 2-4 weeks.
[2024-06-06 14:08] VITALS: RESP 18
[2024-06-06 14:21] VITALS: BP 134/84; PULSE 73
--- NOTE | 2024-06-06 18:08 | FL ---
EXAMINATION TYPE: FL guided pain mgmt statistic DATE OF EXAM: 06/06/2024 FLUOROSCOPY 21 SEC FLUORO, DAP .[id number], CERVICAL RADIOFREQUENCY. 2 images are submitted. [facility], , 06/06/2024 6:06 PM
== END 2024-06-06 14:36 | disposition home or self-care (01) ==
LOC: ORPAIN 12:41
PROVIDERS: ATTEND Specialist
DX: M47.812 Spondylosis without myelopathy or radiculopathy, cervical region (principal)
CPT/HCPCS: 64633; 64634; J2250; J3010; J2795; J1010; 99152

== ENCOUNTER → 2024-07-04 | Outpatient (CLI) | payer BC ==
[2024-07-04 08:41] VITALS: BP 134/93; PULSE 78; RESP 19; TEMP 97.6
--- NOTE | 2024-07-04 13:35 | P.PAINPG ---
Objective - Vital Signs Vital signs: Vital Signs Temp 97.6 F 07/04/24 08:30 Pulse 78 07/04/24 08:30 Resp 19 07/04/24 08:30 BP 134/93 07/04/24 08:30 Pulse Ox 95 07/04/24 08:30 FiO2 Intake & Output 07/03/24 07/04/24 07/04/24 18:59 06:59 18:59 Weight 215 kg PQRS Measure Charge Sheet Mode of Arrival: Ambulatory Comment: A 49 yr old male with a history of severe and chronic neck and LBP > 1 yr secondary to cervical and radiculopathy, spondylosis with facet arthropathy without myelopathy presents today for evaluation s/p L RFA C5-C6/ C6-C7. Pt states he experienced 100 % pain relief x 3 days s/p procedure. Pain level is provoked at 7 /10 in intensity, constant, localized in the lower cervical spine, predominantly axial, sharp in character without shooting pain. Pain is provoked by over activity. Pain is alleviated with at home PT w massage by his x 4 yrs, heat, ice, medications, topical, repositioning and rest. Interventional pain procedures completed include Lumbar TPIs, SEN C6-C7 x1, Lumbar TPIs, L SI x1, BL MBB L3-L5 x1, BL Transection L3-L5 x1 (November 2023), L RFA C5-C7 (Jun 2024) Patient is currently on Tyl, Flexeril, BioFreeze gel Patient denies any side effects of the medication(s), denies excessive drowsiness or sleepiness, denies suicidal ideation and reports that the current pain medication is helping to control the pain and improve activities of daily living. Patient denies any motor or sensory deficits. Patient denies any fever or night sweats, denies any change in the bowel movements or urination. Physical Examination: -Constitutional: Cooperative. Not in acute distress . - Neurologic: Cranial nerve II to XII intact. No focal neurological deficits. - Psychatric: Alert & oriented x 3. Matching mood & appropriate affect. Judgment and insight intact. - Musculoskeletal: Cervical spine: Muscle bulk/ tone/ strength in the bilateral upper extremities normal Vertebral body tenderness to palpation over Spurling test positive Distraction test positive Facet loading test positive TTP Thoracic spine Muscle bulk / tone/ strength in the bilateral paraspinal muscles normal Vertebral body tender to palpation over C6 Johnston test positive BL C6-C7 Facet loading test positive TTP L C5-C6/ C6-C7 Lumbar spine: Motor bulk/ tone/ strength lower extremities , thigh and legs : 5/5 Deep tendon reflexes : Normal Knee Jerk. Normal Ankle Jerk . Vertebral body tenderness to palpation Johnston Test positive Lumbar Facet Loading Test positive BL L4-L5, L5-S1 L> R Straight Leg Raise: positive at 35 degrees right side/ left side Gaenslen's Test positive Sacral spine : Severe tenderness over the Sacroiliac joint: right side / left side Range of motion: Flexion of the lumbar spine <60 degrees Range of motion: Extension of the lumbar spine <20 degrees Gaenslen's Test positive right side / left side Jimenez test: positive right side / left side Thigh Thrust Test positive right side / left side Sacral Thrust Test positive right side / left side Imaging: CT without contrast of the lumbar spine from 04/12/23 reviewed Assessment and plan: Chronic neck and LBP secondary to radiculopathy, spondylosis with facet arthropathy without myelopathy Recommendation of medication management and follow up w Dr Zambrano to explore additional treatment options. Neurontin 100mg PO Qd x 7 days, then 1 tab PO BID thereafter. Follow up in 4 wks for a re evaluation. All questions answered. I have spent less than 30 minutes on patient care today. Dr Howard was available by phone for the evaluation of this patient. The time was used to review the medical records including relevant urine studies and Prescription history (MAPs), review of the available imaging, evaluation and examination of the patient, coordination of care with the medical staff and if applicable referring physicians, as well as creation of the medical record PQRS Narrative: Smoking Status Never smoker Narcotic Agreement Date Signed 07/04/24 Blood Pressure 134/93 Pain Intensity [Neck] 6 Scale Used Numeric (1 - 10) Hx Alcohol Use (MH) Yes: WEEKENDS Home Medications: Ambulatory Orders Losartan [Cozaar] 100 mg PO DAILY 04/08/21 Ascorbic Acid [Vitamin C] 1,000 mg PO DAILY 06/06/23 Milk Thistle Sd Ext/Blessed Th [Milk Thistle 175-120 mg Cap] 1 each PO DAILY 06/06/23 Mv-Min/Folic/K1/Lycopen/Lutein [Centrum Silver Men Tablet] 1 each PO DAILY 06/06/23 [place]-3/Dha/Epa/Fish Oil [Fish Oil 1,000 mg Softgel] 1 each PO DAILY 06/06/23 Turmeric Root Extract [Turmeric] 1,053 mg PO DAILY 06/06/23 Vitamin B Complex 1 each PO DAILY 06/06/23 Zinc Gluconate [Zinc] 50 mg PO DAILY 06/06/23 Tirzepatide [Zepbound] 15 mg SQ SA 10/17/23 Controlled Substance Measures - Controlled Substance Measures Is patient prescribed a controlled substance at discharge?: No
== END ==
LOC: PNWHC3 07:59
PROVIDERS: ATTEND Specialist
DX: G89.29 Other chronic pain (principal); M54.2 Cervicalgia
CPT/HCPCS: 99211